=== PATIENT | male | born 1990 | race Caucasian/White ===

== ENCOUNTER 2021-12-29 17:00 | Outpatient (REF) | payer SELFPAY ==
[2021-12-29 20:09] LABS: Abs Immature Grans 0.04 10^3/uL (0.0-0.06); Absolute Basophil Count 0.08 10^3/uL (0.0-0.2); Absolute Eosinophil Count 0.24 10^3/uL (0.0-0.7); Absolute Lymphocyte Count 4.22 10^3/uL (1.2-3.4); Absolute Neutrophil Count 3.94 10^3/uL (1.2-6.7); Basophils % 0.9; Eosinophils % 2.6; HCT 45.1 % (40.0-50.0); HGB 15.2 g/dL (13.5-17.5); Immature Grans % 0.4; Lymphocytes % 45.8; MCH 29.7 pg (27.0-33.0); MCHC 33.7 % (32.0-36.0); MCV 88 fL (80-95); MPV 11.8 fL (8.0-11.0); Monocytes % 7.6; Neutrophils % 42.7; Platelet Count 156 10^3/uL (130-400); RBC 5.11 10^6/uL (4.36-5.78); RDW 12.2 % (11.8-14.1); RDW-SD 39.8 fL; WBC 9.22 10^3/uL (4.4-10.8)
[2021-12-29 21:03] LABS: ALT 221 U/L (16-63); AST 130 U/L (15-37); Albumin 4.3 g/dL (3.4-5.0); Alkaline Phosphatase 111 U/L (46-116); BUN 14 mg/dL (7-18); Bilirubin, Total 0.5 mg/dL (0.2-1.0); CREATININE 0.8 mg/dL (0.70-1.30); Calcium 9.2 mg/dL (8.5-10.1); Chloride 102 mmol/L (98-107); Potassium 4.2 mmol/L (3.5-5.1); Sodium 138 mmol/L (136-145)
[2021-12-29 21:11] LABS: Glucose 88 mg/dL (74-106)
[2021-12-31 12:50] LABS: HIV-1/2 Ag & Ab Screen Negative (Negative)
[2022-01-02 11:52] LABS: HBs Antibody, Quant >1000.0 mIU/mL (See Note); Hepatitis B Surface Ab Positive (See Note)
[2022-01-02 11:53] LABS: Hepatitis B Surface Ag Negative (Negative)
[2022-01-02 12:21] LABS: Hepatitis C Ab w Rflx HCV PCR Reactive (Negative)
[2022-01-02 12:39] LABS: Hep A Total Ab w Rflx IgM Negative (Negative)
[2022-01-02 23:04] LABS: HCV Genotype 3 (Undetected)
[2022-01-04 08:39] LABS: ALT 196 U/L (7-55); ActiTest Grade A3; ActiTest Interpretation severe activity; ActiTest Score 0.79; Alpha-2-Macroglobulin 224 mg/dL (100 - 280); Apoliprotein A1 158 mg/dL (>=120); Bilirubin, Total 0.4 mg/dL (<=1.2); FibroTest Interpretation no fibrosis; FibroTest Score 0.24; FibroTest Stage F0-F1; GGT 133 U/L (8 - 61); Haptoglobin 132 mg/dL (30 - 200)
[2022-01-04 14:34] LABS: HCV RNA Detection Quantitative 313000 IU/mL (Undetected); HCV RNA Qualitative Detected (Undetected)
== END 2021-12-29 17:01 | disposition home or self-care (01) ==
LOC: NCHCN 17:00
PROVIDERS: Visit Provider Nurse Practitioner Family
DX: B19.20 Unspecified viral hepatitis C without hepatic coma (principal)
CPT/HCPCS: 80053; 81596; 86706; 86709; 86803; 87340; 87389; 87522; 85025; 85610; 87521

== ENCOUNTER 2022-01-18 20:14 | Emergency (ER) | payer MEDICAID, SELFPAY ==
[2022-01-18 20:21] VITALS: BP 128/76; PULSE 74; RESP 16; TEMP 36.6; O2SAT 99
[2022-01-18 23:21] VITALS: RESP 16
== END 2022-01-18 21:50 ==
LOC: ER 20:36
PROVIDERS: Emergency Provider Physician Assistant; PCP Nurse Practitioner Family
DX: Z53.21 Procedure and treatment not carried out due to patient leaving prior to being seen by health care provider (principal)

== ENCOUNTER → 2022-01-31 01:05 | Outpatient (CLI) | payer MEDICAID, SELFPAY ==
--- NOTE | 2022-01-31 | DI.US_ITS ---
Exam(s) US ABDOMEN LIMITED EXAM: US ABDOMEN LIMITED CLINICAL HISTORY: HEP C, B19.20, PRE TREATMENT TECHNIQUE: Ultrasound abdomen performed using standard protocol. COMPARISON: No exams were available for comparison FINDINGS: There is no ascites evident. LIVER: There are no hepatic lesions evident nor dilatation of intrahepatic ducts. GALLBLADDER/BILIARY: There are no gallstones. No gallbladder wall edema nor pericholecystic fluid. The common hepatic duct isnot dilated, measuring 3-4mm at the level of mira hepatis. PANCREAS: There is no evidence of pancreatic mass nor dilatation of the pancreatic duct. RIGHT KIDNEY:No evidence of solid mass, calculus, nor hydronephrosis. No cortical cysts evident. IMPRESSION: 1. No evidence of cholelithiasis nor dilatation of the biliary tree. 2. No other significant ultrasound findings in the right upper quadrant. 3. There is no ascites. DATA REPOSITORY:
== END ==
PROVIDERS: PCP Nurse Practitioner Family; Visit Provider Nurse Practitioner Family
DX: B19.20 Unspecified viral hepatitis C without hepatic coma (principal)
CPT/HCPCS: 76705

== ENCOUNTER 2022-08-29 11:46 | Emergency (ER) | payer MEDICAID, SELFPAY ==
[2022-08-29 11:49] VITALS: BP 140/77; PULSE 96; RESP 16; TEMP 36.8; O2SAT 100
--- NOTE | 2022-08-29 12:07 | ED.GENADUL_ITS ---
Discharge Plan Disposition Patient Disposition: Home Discharge Details Clinical Impression: Facial cellulitis Primary Care Provider: KEVIN HUBER ED Provider: Jim Sorto Home Meds and New Rx's Prescriptions: New sulfamethoxazole-trimethoprim [Bactrim DS] 800-160 mg tablet 1 tab PO BID 10 Days Qty: 20 0RF Continued mirtazapine 15 mg Tablet 15 mg PO DAILY Vyvanse 30 mg Capsule 30 mg PO DAILY buprenorphine-naloxone [Suboxone] 12-3 mg Film DAILY Discharge Instructions Instructions: Cellulitis (ED) Additional Instructions: We will review rest today. Warm compresses to the area to reduce swelling; this will help with healing. Take antibiotics twice daily as prescribed. No alcohol while on the antibiotic. You were seen by our care managers today. Return for any acute concerns Medical Decision Making 31-year-old male presents with subjective fever and chills over 2 to 3 days. He has evidence of left facial cellulitis. He has had recidivism of IV drug use. He does state that he had a staph infection distantly and a question of endocarditis. Today the patient is afebrile and well-appearing. His exam is consistent with left facial cellulitis. I will treat him with a course of Bactrim. He was seen by the hospital social sciences instructor regarding referrals for treatment for opiate dependence. He is stable and appropriate for discharge. HPI General Mode of arrival: ambulatory . Date/Time Provider Initiated Documentation: 08/29/22 11:50 . Limitations to Documentation: no limitations . Information obtained by: patient . History of Present Illness 31 year old M presents to the emergency department with the chief complaint of Fever and left face swelling, described as moderate, Quality is described as dull and constant, and is localized to the face. Patient reports no radiation. Patient started experiencing this day(s) and it has been intermittent. No relieving factors improve symptom(s), No exacerbating factors reported . Patient notes fever/chills; denies cough and shortness of breath. Patient did receive the following treatments prior to arrival, none Related Data Home Medications Medication Instructions Recorded Confirmed buprenorphine 12 mg-naloxone 3 mg film DAILY 01/18/22 sublingual film (Suboxone) lisdexamfetamine 30 mg capsule 30 mg PO DAILY 01/18/22 01/18/22 (Vyvanse) mirtazapine 15 mg tablet 15 mg PO DAILY 01/18/22 01/18/22 sulfamethoxazole 800 1 tab PO BID 10 days #20 tabs 08/29/22 mg-trimethoprim 160 mg tablet (Bactrim DS) Previous Rx's Medication Instructions Recorded sulfamethoxazole 800 1 tab PO BID 10 days #20 tabs 08/29/22 mg-trimethoprim 160 mg tablet (Bactrim DS) Allergies Allergy/AdvReac Type Severity Reaction Status Date / Time No Known Allergies Allergy Unverified 01/18/22 20:24 General Stated Complaint: Fever CARLA: 3 Review of Systems Narrative: Using IV drugs. Trying to get into treatment. 6 systems were reviewed [facility] All Active Problems (Updated 08/29/22 @ 12:10 by Jim Sorto MD) Facial cellulitis (Acute) Social History Smoking/Tobacco Use Status: Current every day Tobacco Type: cigarettes Smoking risk assessment performed?: Yes Substance use type: former substance user, heroin, opiates and methamphetamine Exam Narrative Exam Narrative: GEN: awake, alert, oriented 3. Pleasant, well groomed, interactive. HEAD: Normocephalic, atraumatic ENT: Mucous membranes moist, oropharynx unremarkable, left tympanic membranes slightly fluid-filled pearlescent and lynch, right tympanic membrane unremarkable. Patient has swelling of his left cheek with a scabbed area that he has been itching. EYES: PERRL, EOMI NECK: Full ROM, no OPAL, no menigismus CHEST/RESP: Nontender, clear to auscultation bilateral, no wheeze/rhonchi/rales CARDIOVASCULAR: RRR, no murmur, rub sun. 2+ Rad pulse bilateral EXT: Full ROM, no edema, track [place] left AC fossa and right distal forearm Neuro: Grossly normal neurologic exam, conversant, interactive. Psych: Speech fluent, thoughts congruent, affect normal Course Vital Signs Vital signs: Vital Signs Temperature 36.8 C 08/29/22 11:49 Pulse 96 H 08/29/22 11:49 Respiratory Rate 16 08/29/22 11:49 Blood Pressure 140/77 08/29/22 11:49 Pulse Oximetry 100 08/29/22 11:49 Temperature 36.8 C 08/29/22 11:49 Temperature Source Oral 08/29/22 11:49 Pulse 96 H 08/29/22 11:49 Respiratory Rate 16 08/29/22 11:49 Blood Pressure 140/77 08/29/22 11:49 Blood Pressure Position Sitting 08/29/22 11:49 Pulse Oximetry 100 08/29/22 11:49 Oxygen Delivery Method Room Air 08/29/22 11:49 Oxygen Flow Rate 0 08/29/22 11:49 Pain Level 1 08/29/22 11:49
[2022-08-29] MEDS: Sulfameth/Trimeth DS, 2 TABS/BTL 1 TAB PO (12:18)
[2022-08-29 12:22] VITALS: BP 140/77; PULSE 92; RESP 16; TEMP 36.8; O2SAT 100
--- NOTE | 2022-08-29 12:36 | CMACTNOTE_ITS ---
- If Service Date Differs Date of service: 08/29/22 Time of Service: 12:36 Care Management Activity Note Andre presents in the ED for facial cellulitis. At the request of ED provider, GOPAL meets with Andre to offer assistance in getting him connected with [facility]. Andre reports he has been in contact with [facility] but has been unable to get an appointment. With his verbal permission, GOPAL telephones [facility] and speaks with Yessenia who states she has been trying to reach Andre to provide him with an appointment but has been unable to reach him. GOPAL is able to connect Yessenia with Andre and he is provided an appointment for tomorrow morning (08/30/22) at [facility].
--- NOTE | 2022-08-31 07:04 | NUR.NOTE ---
Nursing Note: Patient called stating that he did not turkey picker his prescription yesterday. The cellulitis is worse. Can he get something sooner or wait until the pharmacy opens at 9am and turkey picker the presciption then? Per Dr. Carey he needs to turkey picker the prescription today. If he feels that he needs to be seen, then he is welcome to return to the ED. Patient is aware.
== END 2022-08-29 12:30 | disposition home or self-care (01) ==
PROVIDERS: Emergency Provider Emergency Medicine; PCP Nurse Practitioner Family
DX: L03.211 Cellulitis of face (principal)
CPT/HCPCS: 99283

== ENCOUNTER 2023-01-01 14:24 | Emergency (ER) | payer MEDICAID, SELFPAY ==
[2023-01-01 14:29] VITALS: PULSE 82; RESP 18; TEMP 36.8; O2SAT 97
--- NOTE | 2023-01-01 14:33 | ED.GENADUL_ITS ---
Discharge Plan Discharge Details Chief Complaint: RX Refill Primary Care Provider: KEVIN HUBER ED Provider: Sandrine Avelar Home Meds and New Rx's Prescriptions: No Action mirtazapine 15 mg Tablet 15 mg PO DAILY Patient Comments: pt states not taking Vyvanse 30 mg Capsule 60 mg PO DAILY buprenorphine-naloxone [Suboxone] 12-3 mg Film DAILY Patient Comments: pt states not taking paroxetine HCl 30 mg Tablet 30 mg PO DAILY methadone 10 mg/5 mL Solution 100 mg PO DAILY Medical Decision Making Called [facility] after hours, awaiting call back. HPI General Date/Time Provider Initiated Documentation: 01/01/23 14:33 . Related Data Home Medications Medication Instructions Recorded Confirmed buprenorphine 12 mg-naloxone 3 mg film DAILY 01/18/22 sublingual film (Suboxone) lisdexamfetamine 30 mg capsule 60 mg PO DAILY 01/18/22 01/01/23 (Vyvanse) mirtazapine 15 mg tablet 15 mg PO DAILY 01/18/22 01/18/22 methadone 10 mg/5 mL oral solution 100 mg PO DAILY 01/01/23 01/01/23 paroxetine HCl 30 mg tablet 30 mg PO DAILY 01/01/23 01/01/23 Allergies Allergy/AdvReac Type Severity Reaction Status Date / Time No Known Allergies Allergy Unverified 01/18/22 20:24 General Stated Complaint: RX Refill CARLA: 5 PFSH Social History Smoking/Tobacco Use Status: Current every day Tobacco Type: cigarettes Smoking risk assessment performed?: Yes Drug use: Current Sobriety Substance use type: heroin, opiates, IV drugs and methamphetamine Do you feel safe at home: Yes Do you feel safe in your relationship?: Yes Course Vital Signs Vital signs: Vital Signs Temperature 36.8 C 01/01/23 14:29 Pulse 82 01/01/23 14:29 Respiratory Rate 18 01/01/23 14:29 Pulse Oximetry 97 01/01/23 14:29 Temperature 36.8 C 01/01/23 14:29 Temperature Source Oral 01/01/23 14:29 Pulse 82 01/01/23 14:29 Respiratory Rate 18 01/01/23 14:29 Blood Pressure Position Sitting 01/01/23 14:29 Pulse Oximetry 97 01/01/23 14:29 Oxygen Delivery Method Room Air 01/01/23 14:29 Oxygen Flow Rate 0 01/01/23 14:29
[2023-01-01] MEDS: Methadone Liquid 10 MG/ML 100 MG PO (16:53)
--- NOTE | 2023-01-01 16:54 | W.ED.GENAD ---
Discharge Plan Disposition Patient Disposition: Home Discharge Details Clinical Impression: Opioid dependence on maintenance agonist therapy, no symptoms Primary Care Provider: KEVIN HUBER ED Provider: Richie Del Rio Home Meds and New Rx's Prescriptions: Continued Vyvanse 30 mg Capsule 60 mg PO DAILY paroxetine HCl 30 mg Tablet 30 mg PO DAILY methadone 10 mg/5 mL Solution 100 mg PO DAILY Discontinued mirtazapine 15 mg Tablet 15 mg PO DAILY Patient Comments: pt states not taking buprenorphine-naloxone [Suboxone] 12-3 mg Film DAILY Patient Comments: pt states not taking Discharge Instructions Additional Instructions: We have dosed you today with your methadone given that the circumstances were out of your control. It is very important that you follow-up with the [facility] clinic for further dosing as this is not a standard procedure for the emergency department. Referrals: [facility] [Outside] - 1 day Medical Decision Making Patient presenting to the emergency department for chief complaint of missed methadone dose. Patient states due to circumstances out of his control he missed his daily methadone dose. Patient denies all other symptoms. We did contact [facility] and verified patient's dose of 100 mg daily. Patient is no longer on Suboxone. Patient has no obvious signs of withdrawal or acute distress so we did dose patient with a single dose and encouraged him to return to his normal dosing at the clinic. After discussion of diagnosis and plan of care patient has no further needs, questions, or concerns and states clear understanding to return to the emergency department for any worsening symptoms. This documentation was generated using [employer] dictation system, please disregard any oddities of phrase or misspellings. HPI General Mode of arrival: ambulatory. Date/Time Provider Initiated Documentation: 01/01/23 14:33. Limitations to Documentation: no limitations. Information obtained by: patient and RN notes reviewed. History of Present Illness 32 year old M presents to the emergency department with the chief complaint of Missed methadone dose, Patient notes no other symptoms.. Patient did receive the following treatments prior to arrival, none Related Data Home Medications Medication Instructions Recorded Confirmed lisdexamfetamine 30 mg capsule 60 mg PO DAILY 01/18/22 01/01/23 (Vyvanse) methadone 10 mg/5 mL oral solution 100 mg PO DAILY 01/01/23 01/01/23 paroxetine HCl 30 mg tablet 30 mg PO DAILY 01/01/23 01/01/23 Allergies Allergy/AdvReac Type Severity Reaction Status Date / Time No Known Allergies Allergy Unverified 01/18/22 20:24 General Stated Complaint: RX Refill CARLA: 3 Review of Systems Narrative: 6 systems reviewed and unremarkable except what is marked below. PFSH All Active Problems (Updated 01/01/23 @ 16:57 by Richie Del Rio NP) Opioid dependence on maintenance agonist therapy, no symptoms (Acute) Social History Smoking/Tobacco Use Status: Current every day Tobacco Type: cigarettes Smoking risk assessment performed?: Yes Drug use: Current Sobriety Substance use type: heroin, opiates, IV drugs and methamphetamine Do you feel safe at home: Yes Do you feel safe in your relationship?: Yes Exam Const General: cooperative, no acute distress and not ill appearing Orientation: alert, awake and oriented x3 HENMT Mouth: moist mucous membranes Resp Effort & Inspection: normal respiratory effort, able to speak in complete sentences and no respiratory distress Neuro General: patient alert, patient awake, patient oriented x3 and moves all extremities Course Vital Signs Vital signs: Vital Signs Temperature 36.8 C 01/01/23 14:29 Pulse 82 01/01/23 14:29 Respiratory Rate 18 01/01/23 14:29 Pulse Oximetry 97 01/01/23 14:29 Temperature 36.8 C 01/01/23 14:29 Temperature Source Oral 01/01/23 14:29 Pulse 82 01/01/23 14:29 Respiratory Rate 18 01/01/23 14:29 Respiratory Effort Normal, Non-Labored 01/01/23 14:34 Blood Pressure Position Sitting 01/01/23 14:29 Pulse Oximetry 97 01/01/23 14:29 Oxygen Delivery Method Room Air 01/01/23 14:29 Oxygen Flow Rate 0 01/01/23 14:29
[2023-01-01 17:09] VITALS: BP 128/85; PULSE 71; RESP 16; O2SAT 97
== END 2023-01-01 17:02 | disposition home or self-care (01) ==
PROVIDERS: Emergency Provider Nurse Practitioner Family; PCP Nurse Practitioner Family
DX: F11.20 Opioid dependence, uncomplicated (principal)
CPT/HCPCS: 99283; 99284

== ENCOUNTER 2023-12-05 10:54 | Inpatient (IN) | payer MEDICAID, SELFPAY ==
[2023-12-05 10:57] VITALS: BP 159/86; PULSE 106; RESP 14; TEMP 36.4; O2SAT 98
--- NOTE | 2023-12-05 11:15 | DI.US_ITS ---
Exam(s) US SOFT TISSUE EXTREMITY EXAM: US SOFT TISSUE EXTREMITY CLINICAL HISTORY: DVT vs abscess L arm. TECHNIQUE: Ultrasound was performed using standard protocol. COMPARISON: US US UPPER EXTREMITY VENOUS LT from 12/05/2023 FINDINGS: Sonographic assessment utilizing grayscale and color Doppler imaging was performed and targeted to th e area of clinical concern. The region of significant swelling in the upper arm was scanned There is no evidence of abscess. There is severe edema in the subcutaneous fat. Reactive lymph node s are noted in the axilla. IMPRESSION: Marked soft tissue swelling. No evidence of drainable abscess or fluid collection. DATA REPOSITORY:
--- NOTE | 2023-12-05 11:15 | DI.US_ITS ---
Exam(s) US UPPER EXTREMITY VENOUS LT EXAM: US UPPER EXTREMITY VENOUS LT CLINICAL HISTORY: L unilateral arm swelling. TECHNIQUE: Ultrasound examination of the left upper extremity venous system(s) is performed using gr ayscale, color-flow, and spectral Doppler analysis. COMPARISON: No exams were available for comparison FINDINGS: Evaluation of the veins limited due to extensive swelling of the upper arm. The left internal jugular, axillary, subclavian, basilic, and brachial veins are patent without evide nce of thrombosis. There is compression of the cephalic vein. Thrombus is visible in the cephalic vein in the upper for earm, antecubital fossa region over a length of 2-3 cm. IMPRESSION: Thrombus in the cephalic vein in the antecubital fossa. The more superior cephalic vein is not visua lized, compressed by a marked soft tissue swelling. The remaining vessels are free of thrombus. DATA REPOSITORY:
--- NOTE | 2023-12-05 11:25 | W.ED.GENAD ---
Discharge Plan Discharge Details Chief Complaint: Cellulitis Primary Care Provider: KEVIN HUBER ED Provider: Nahun Albarran Home Meds and New Rx's Prescriptions: New cephalexin 500 mg capsule 500 mg PO QID 14 Days Qty: 56 0RF doxycycline hyclate 100 mg capsule 100 mg PO BID 14 Days Qty: 28 0RF Continued lisdexamfetamine [Vyvanse] 30 mg Capsule 60 mg PO DAILY paroxetine HCl 30 mg Tablet 30 mg PO DAILY methadone 10 mg/5 mL Solution 150 mg PO DAILY Discharge Instructions Instructions: Cephalexin, Doxycycline, Superficial vein phlebitis and thrombosis, Cellulitis (Skin Infection), Adult ED HPI General Date/Time Provider Initiated Documentation: 12/05/23 11:24. HPI Narrative: 32 year-old male presents to ED today by POV/ambulating with a chief complaint of draining abscess, redness, swelling to L arm, R-hand dominant with onset for about 3 days. Patient states he was using IVDU in this area, has been draining purulent material, and having diffuse swelling to L arm more focal to proximal arm. Quality described as painful touch, no radiation to fever, nausea, numbness, skin changes in distal forearm/hand, denies shoulder/neck pain, denies tachycardia, shortness of breath or chest pain. Severity is described as moderate to severe with palpation. Palliating factors include nothing specific attempted. Provoking factors include touch. Patient has not been to PCP in quite some time, may have compliance issues. Patient not anticoagulated. Related Data Home Medications Medication Instructions Recorded Confirmed lisdexamfetamine 30 mg capsule 60 mg PO DAILY 01/18/22 12/05/23 (Vyvanse) methadone 10 mg/5 mL oral solution 150 mg PO DAILY 01/01/23 12/05/23 paroxetine HCl 30 mg tablet 30 mg PO DAILY 01/01/23 12/05/23 cephalexin 500 mg capsule 500 mg PO QID cellulitis 14 days 12/05/23 #56 caps doxycycline hyclate 100 mg capsule 100 mg PO BID 14 days #28 caps 12/05/23 Previous Rx's Medication Instructions Recorded cephalexin 500 mg capsule 500 mg PO QID cellulitis 14 days 12/05/23 #56 caps doxycycline hyclate 100 mg capsule 100 mg PO BID 14 days #28 caps 12/05/23 Allergies Allergy/AdvReac Type Severity Reaction Status Date / Time No Known Allergies Allergy Unverified 12/05/23 11:03 General Stated Complaint: Cellulitis CARLA: 2 Review of Systems All systems reviewed & are unremarkable except as noted in HPI and below Exam Narrative Exam Narrative: GENERAL APPEARANCE: Well-nourished, non-toxic, awake and alert, atraumatic, no acute distress. SKIN: Warm, pink, dry, intact, without rashes/lesions/ulcerations. HEAD: Normocephalic, atraumatic, normal hair distribution for gender/age. EYES: Pupils PERRLA, EOMs intact without nystagmus, normal conjunctiva, no exudates on lids/lashes. ENT: Nares patent, no circumoral cyanosis, no facial swelling NECK: Supple, trachea midline, painless cervical ROM. LUNGS/CHEST: Non-labored respirations, normal A/P diameter, symmetrical expansion, no chest wall deformity HEART (CV/PV): Regular rate, L radial pulse 2+, no peripheral edema, no JVD. ABDOMEN: Soft, non-distended, no guarding. MSK: Normal ROM, no swelling/deformity to bilateral UEs or LEs, moving all extremities without weakness, no cyanosis, spine midline without tenderness, normal curvature. L UE: Diffuse swelling to the left upper extremity without cerulea dolens in the distal left arm, space and missile operations strength 5/5, sensation intact with brisk capillary refill left radial pulse 2+, has a draining abscess lesion of IVDU at the left antecubital fossa with significant erythema and swelling to the distal bicep area, the erythema is nearly circumferential NEURO: Mental Status AAOx4 - alert to person, place, time, events No facial droop, no forehead involvement. Motor: No focal weakness - strength 5/5 in bilateral UEs and LEs, proximal and distal, symmetric. Sensory: sensation intact to light touch globally. Gait normal: patient ambulated without ataxia into ED room. PSYCH: euthymic, cooperative, pleasant, appropriate speech Course Vital Signs Vital signs: Vital Signs Temperature 36.4 C L 12/05/23 10:57 Pulse 106 H 12/05/23 10:57 Respiratory Rate 14 12/05/23 10:57 Blood Pressure 159/86 H 12/05/23 10:57 Pulse Oximetry 98 12/05/23 10:57 Temperature 36.4 C L 12/05/23 10:57 Temperature Source Temporal Artery Scan 12/05/23 10:57 Pulse 106 H 12/05/23 10:57 Respiratory Rate 14 12/05/23 10:57 Respiratory Effort Normal, Non-Labored 12/05/23 11:00 Blood Pressure 159/86 H 12/05/23 10:57 Blood Pressure Position Sitting 12/05/23 10:57 Pulse Oximetry 98 12/05/23 10:57 Oxygen Delivery Method Room Air 12/05/23 10:57 Oxygen Flow Rate 0 12/05/23 10:57 Pain Level 4 12/05/23 10:57 Medical Decision Making This dictation utilizes [id number] dictation software and may contain unedited grammatical errors. 32 year-old male presents to ED today by POV/ambulating with a chief complaint of draining abscess, redness, swelling to L arm, R-hand dominant with onset for about 3 days. Patient states he was using IVDU in this area, has been draining purulent material, and having diffuse swelling to L arm more focal to proximal arm. Quality described as painful touch, no radiation to fever, nausea, numbness, skin changes in distal forearm/hand, denies shoulder/neck pain, denies tachycardia, shortness of breath or chest pain. Severity is described as moderate to severe with palpation. Palliating factors include nothing specific attempted. Provoking factors include touch. Patient has not been to PCP in quite some time, may have compliance issues. Patients' medical history: Noncontributory, denies any coagulation disorder known. Family and social history: IVDU-active user. Pertinent exam findings / vital signs include L UE: Diffuse swelling to the left upper extremity without cerulea dolens in the distal left arm, space and missile operations strength 5/5, sensation intact with brisk capillary refill left radial pulse 2+, has a draining abscess lesion of IVDU at the left antecubital fossa with significant erythema and swelling to the distal bicep area, the erythema is nearly circumferential. Differential / pathologies of concern include DVT, SVT of L UE, Cellulitis, Abscess, Sepsis. Diagnostic studies of: -CBC, CMP, Lactate, Procalcitonin, Blood Cx's, CRP, PT/PTT/INR, US L UE Soft Tissue, US L UE DVT Study. -CBC shows leukocytosis of 12.9 -Lactate and procalcitonin negative-do not suspect sepsis -CMP is benign -CRP is 15.5 -Coags are fairly benign with a mild elevation of PT, INR 1.1 -Blood cultures pending -US L UE soft tissue shows no abscess shows signs of cellulitis -US L UE DVT study shows thrombus within the cephalic vein proximal, concern for superficial thrombosis near to the deep vein system Interventions of: -2gm IV cefazolin, 2gm IV Vancomycin, [place] [facility] [place] [place] is DOAC appropriate for this clot vs SVT tx- patient has high risk and compliance issues for Coumadin and subQ injections. -Consult ABX of Keflex and Doxycycline PO, sent to patients' pharmacy ED Course/Assessment/Plan: 32-year-old male presents with significant lesion from IVDU in the left antecubital fossa, he has near circumferential cellulitis of this area with some draining scant abscess of no palpable size, he has diffuse swelling throughout the proximal arm and concern for possible DVT pathology, his ultrasound shows cephalic vein thrombus of 1 to 2 cm, this is near to the deep vein system but is a superficial clot at this time ordered baseline coagulation studies. In literature search I found that DOACs may not be recommended as of yet due to lack of sufficient studies but the patient has significant compliance issues with his inability to follow closely with PCP for Coumadin use and has intravenous drug use issues I do not think supplying the patient with copious amounts of needles and having him inject subcu anticoagulants at home is an ideal treatment solution so I consulted with [facility] vascular surgery Dr. Rodrigues. Findings not consistent with cerulea dolens, NV compromise, large abscess, sepsis. Disposition of Cephalic Vein Thrombus of Left Upper Extremity. Patient verbalized understanding of the plan and return to ED criteria and engaged in shared decision making. Medical Records Medical records reviewed: Yes I reviewed the patient's medical records. Imaging Data Radiologic Study: Attestation: I personally reviewed and interpreted this imaging study as follows: Imaging: Ultrasound Radiologist's impression: EXAM: US UPPER EXTREMITY VENOUS LT CLINICAL HISTORY: L unilateral arm swelling. TECHNIQUE: Ultrasound examination of the left upper extremity venous system(s) is performed using grayscale, color-flow, and spectral Doppler analysis. COMPARISON: No exams were available for comparison FINDINGS: Evaluation of the veins limited due to extensive swelling of the upper arm. The left internal jugular, axillary, subclavian, basilic, and brachial veins are patent without evidence of thrombosis. There is compression of the cephalic vein. Thrombus is visible in the cephalic vein in the upper forearm, antecubital fossa region over a length of 2-3 cm. IMPRESSION: Thrombus in the cephalic vein in the antecubital fossa. The more superior cephalic vein is not visualized, compressed by a marked soft tissue swelling. The remaining vessels are free of thrombus. Radiologic Study #2: Attestation: I personally reviewed and interpreted this imaging study as follows: Imaging: Ultrasound Radiologist's impression: EXAM: US SOFT TISSUE EXTREMITY CLINICAL HISTORY: DVT vs abscess L arm. TECHNIQUE: Ultrasound was performed using standard protocol. COMPARISON: US US UPPER EXTREMITY VENOUS LT from 12/05/2023 FINDINGS: Sonographic assessment utilizing grayscale and color Doppler imaging was performed and targeted to the area of clinical concern. The region of significant swelling in the upper arm was scanned There is no evidence of abscess. There is severe edema in the subcutaneous fat. Reactive lymph nodes are noted in the axilla. IMPRESSION: Marked soft tissue swelling. No evidence of drainable abscess or fluid collection. Lab Data Lab results reviewed: Yes I reviewed the patient's lab results. Labs: 12/05/23 13:36 Blood Blood Culture - Pending 12/05/23 11:55 Blood Blood Culture - Pending Laboratory Tests Range/Units 12/05/23 12/05/23 11:55 13:36 WBC (4.4-10.8) 10^3/uL 12.97 H RBC (4.36-5.78) 10^6/uL 4.80 Hgb (13.5-17.5) g/dL 13.7 Hct (40.0-50.0) % 41.7 MCV (80-95) fL 87 MCH (27.0-33.0) pg 28.5 MCHC (32.0-36.0) % 32.9 RDW (11.8-14.1) % 12.0 Plt Count (130-400) 10^3/uL 349 MPV (8.0-11.0) fL 10.4 Immature Gran % % 0.5 Neutrophils % % 76.4 Lymphocytes % % 15.0 Monocytes % % 6.9 Eosinophils % % 0.8 Basophils % % 0.4 Nucleated RBC % (0.0-0.3) % 0.0 Absolute Neutrophils (1.2-6.7) 10^3/uL 9.91 H Absolute Lymphocytes (1.2-3.4) 10^3/uL 1.95 Absolute Monocytes (0.1-0.8) 10^3/uL 0.89 H Absolute Eosinophils (0.0-0.7) 10^3/uL 0.10 Absolute Basophils (0.0-0.2) 10^3/uL 0.05 PT (9.1-11.1) sec 11.2 H INR (0.9-1.1) 1.1 APTT (23.6-32.8) sec 27.5 VBG Lactate (0.6-1.4) mmol/L 1.2 Sodium (136-145) mmol/L 142 Potassium (3.5-5.1) mmol/L 3.6 Chloride (98-107) mmol/L 103 Carbon Dioxide (21.0-32.0) mmol/L 32.4 H Anion Gap (3-11) mmol/L 6.6 BUN (7-18) mg/dL 10 Creatinine (0.70-1.30) mg/dL 0.7 Est GFR (CKD-EPI 2020) (mL/min/1.73m2) 124.00 Glucose (74-106) mg/dL 114 H Calcium (8.5-10.1) mg/dL 9.3 Total Bilirubin (0.2-1.0) mg/dL 0.5 AST (15-37) U/L 24 ALT (16-63) U/L 41 Alkaline Phosphatase (46-116) U/L 87 C-Reactive Protein (<or=0.5) mg/dL 15.52 H Total Protein (6.4-8.2) g/dL 8.1 Albumin (3.4-5.0) g/dL 3.0 L Procalcitonin ng/mL < 0.1 Quality:SDOH Health Related Social Needs: Health related social needs risk of homeless, material hardship, food insecurity, transpo insecurity [facility] Social History Smoking/Tobacco Use Status: Current every day Tobacco Type: cigarettes Smoking risk assessment performed?: Yes Alcohol Intake: current Alcohol Intake frequency: 0-2 drinks per day Alcohol type: beer Drug use: Current Sobriety Substance use type: heroin, opiates, IV drugs and methamphetamine Housing: homeless Do you feel safe at home: No Do you feel safe in your relationship?: Yes Sign Out Sign Out Data: Sign Out Comment: Patient has likely high risk SVT of L UE from IVDU, with near circumferential cellulitis. Received IV cefazolin and vancomycin. Rx'd PO cephalexin and doxy for cellulitis. P[place] [facility] [place] for DOAC vs NSAID treatment. Last updated by Nahun Albarran PA at 12/05/23 15:31 PAWSS Have you Been Recently Intoxicated or Drunk Within the Last 30 days?: No Have you Ever Experienced Previous Episodes of Alcohol Withdrawal?: No Have you ever Experienced Withdrawal Seizures?: No Have you ever Experienced Delirium Tremens(DT)s?: No Have you ever undergone Alcohol Rehabilitation Treatment (i.e, inpt ot outpatient treatment programs)?: No Have you ever Experienced Blackouts?: No Have you ever Combined Alcohol with other Downers within the last 90 days?: No Have you ever Combined Alcohol with any other Substance of Abuse during the last 90 days?: No Positive Blood Alcohol level on Presentation? [PCS.BAL]: No Evidence of Increased Autonomic Activity (i.e. HR>120, tremor, sweating, agitation, nausea)?: No Result: 0
[2023-12-05 12:10] LABS: Lactate 1.2 mmol/L (0.6-1.4)
[2023-12-05 12:11] LABS: Abs Immature Grans 0.07 10^3/uL (0.0-0.06); Absolute Basophil Count 0.05 10^3/uL (0.0-0.2); Absolute Lymphocyte Count 1.95 10^3/uL (1.2-3.4); Basophils % 0.4 %; Eosinophils % 0.8 %; HCT 41.7 % (40.0-50.0); HGB 13.7 g/dL (13.5-17.5); Immature Grans % 0.5 %; MCH 28.5 pg (27.0-33.0); MCHC 32.9 % (32.0-36.0); MCV 87 fL (80-95); MPV 10.4 fL (8.0-11.0); Monocytes % 6.9 %; Neutrophils % 76.4 %; Platelet Count 349 10^3/uL (130-400); RDW-SD 38.8 fL; WBC 12.97 10^3/uL (4.4-10.8)
[2023-12-05 12:17] LABS: Absolute Monocyte Count 0.89 10^3/uL (0.1-0.8); Absolute Neutrophil Count 9.91 10^3/uL (1.2-6.7)
[2023-12-05 12:40] LABS: ALT 41 U/L (16-63); AST 24 U/L (15-37); Alkaline Phosphatase 87 U/L (46-116); Anion Gap 6.6 mmol/L (3-11); BUN 10 mg/dL (7-18); Bilirubin, Total 0.5 mg/dL (0.2-1.0); C-Reactive Protein 15.52 mg/dL (<or=0.5); CO2 32.4 mmol/L (21.0-32.0); CREATININE 0.7 mg/dL (0.70-1.30); Calcium 9.3 mg/dL (8.5-10.1); Chloride 103 mmol/L (98-107); Glucose 114 mg/dL (74-106); Potassium 3.6 mmol/L (3.5-5.1); Sodium 142 mmol/L (136-145); Total Protein 8.1 g/dL (6.4-8.2)
[2023-12-05 12:54] LABS: Procalcitonin < 0.1 ng/mL
[2023-12-05] MEDS: ceFAZolin 2 GM/50 ML BAG IVPB (13:30)
--- OUTSIDE RECORDS SUMMARY | 2023-12-05 13:34 | XMS_ITS | Continuity of Care Document ---
Author Name [facility] Address [address] [place] [id number] Organization [facility] Address [address] [place] [id number] Care Team Providers Care Assistant Manager Name Role Phone PCP, of Choice Primary Care Physician Brent Vazquez Admitting Physician [phone] Brent Brantley Attending Physician Allergies, Adverse Reactions, Alerts Allergen Type Severity Reaction Last Updated Verified Status penicillin V Allergy Mild rash July 04, 2021 Y Ac tive Medications Active Medications Medication Dose Units Route Sig Start Date Status Mirtazapine 15 MG ORAL DAILY July 03, 2021 Act bailee Buprenorphine-Naloxone [Suboxone] 1 film SUBLINGUAL CHELE LY July 03, 2021 Active Problem List Active Problems Medical Problem Onset Date Status Metabolic encephalopathy Active Acute confusion Active Procedures Procedure Date Status CT Head w/o Contrast July 04, 2021 completed EKG July 03, 2021 completed Relevant Diagnostic Tests and/or Laboratory Data Laboratory Results Test Date/Time Result Interp. Ref. Range Result Co mment White Blood Count July 03, 2021 9:19pm 15.30 1000/mm3 High 4.8-10.8 Red Blood Count July 03, 2021 9:19pm 5.60 M/mm3 4.70-6.00 Hemoglobin July 03, 2021 9:19pm 16.3 g/dL 14.0-18.0 Hematocrit July 03, 2021 9:19pm 48.8 % 42-52 Mean Corpuscular Volume July 03, 2021 9:19pm 87.1 fL 80.0-94.0 Mean Corpuscular Hemoglobin July 03, 2021 9:19pm 29.1 pg 27-31 Mean Corpuscular Hemoglobin Concent July 03, 2021 9:19pm 33.4 g/dL 33-37 Red Cell Distribution Width July 03, 2021 9:19pm 12.3 % 11.5-14.5 Platelet Count July 03, 2021 9:19pm 265 1000/mm3 140-440 Mean Platelet Volume July 03, 2021 9:19pm 9.9 fL 7.4-10.4 Neutrophils (%) (Auto) July 03, 2021 9:19pm 74.9 % High 40.0-72.0 Lymphocytes (%) (Auto) July 03, 2021 9:19pm 17.4 % 17-45 Monocytes (%) (Auto) July 03, 2021 9:19pm 6.3 % 3-11 Eosinophils (%) (Auto) July 03, 2021 9:19pm 0.3 % 0-3 Basophils (%) (Auto) July 03, 2021 9:19pm 0.5 % 0-1 Immature Granulocyte % (Auto) July 03, 2021 9:19pm 0.6 % 0-1 Nucleated Red Blood Cells % (auto) February 23, 2021 12:15pm TNP Test not perform ed CBCD CANCELLED, LAB UNABLE TO DRAW PATIENT Neutrophils # (Auto) July 03, 2021 9:19pm 11.48 1000/mm3 High 1.4-6.5 Lymphocytes # (Auto) July 03, 2021 9:19pm 2.66 1000/mm3 1.2-3.4 Monocytes # (Auto) July 03, 2021 9:19pm 0.96 1000/mm3 High 0.0-0.8 Eosinophils # (Auto) July 03, 2021 9:19pm 0.04 1000/mm3 0.0-0.7 Basophils # (Auto) July 03, 2021 9:19pm 0.07 1000/mm3 0.0-0.1 Absolute Immature Granulocyte (auto July 03, 2021 9:19pm 0.1 0-1 Nucleated RBC Absolute Count (auto) February 23, 2021 12:15pm TNP Test not perform ed CBCD CANCELLED, LAB UNABLE TO DRAW PATIENT Differential Method July 03, 2021 9:19pm Automated Sodium Level July 04, 2021 6:52am 139 mmol/L 137-145 Potassium Level July 04, 2021 6:52am 4.4 mmol/L 3.6-5.0 Chloride Level July 04, 2021 6:52am 103 mmol/L 98-107 Carbon Dioxide Level July 04, 2021 6:52am 28 mmol/L 22-30 Anion Gap July 04, 2021 6:52am 8 7-16 Blood Urea Nitrogen July 04, 2021 6:52am 13 mg/dL 8-26 Creatinine July 04, 2021 6:52am 0.67 mg/dL 0.66-1.25 Glomerular Filtration Rate Calc July 04, 2021 6:52am > 60 mL/min 60.0- Glucose Level July 04, 2021 6:52am 101 mg/dL High 70-100 Calcium Level July 04, 2021 6:52am 9.5 mg/dL 8.4-10.2 Calcium Adjusted for Albumin July 04, 2021 6:52am 9.5 mg/dL 8.4-10.2 Total Bilirubin July 04, 2021 6:52am 1.2 mg/dL 0.2-1.3 Gamma Glutamyl Transpeptidase February 23, 2021 12:15pm TNP Test not perform ed UNABLE TO OBTAIN Aspartate Amino Transf (AST/SGOT) July 04, 2021 6:52am 63 U/L High 17-59 Alanine Aminotransferase (ALT/SGPT) July 04, 2021 6:52am 67 U/L High As of 10/17/19, th e Reference Range for ALT/SGPT for adult patients has been updated. The Reference Range for ALT/SGPT has not been established for patients <18 years of age. Troponin I July 03, 2021 9:19pm < 0.012 ng/mL 0-0.034 Reference Range: <0.034 ng/mL AMI Cut-off 0.120 ng/mL The results of this assay can be falsely decreased in patients who consume Biotin. Total Protein July 04, 2021 6:52am 7.3 g/dL 6.3-8.2 Albumin July 04, 2021 6:52am 4.3 g/dL 3.5-5.0 Alkaline Phosphatase July 04, 2021 6:52am 77 U/L 38-126 SARS-CoV-2 RNA (RT-PCR) July 04, 2021 6:02am Negative Note: This RT-PC R assay is intended for the in vitro qualitative detection of nucleic acid from SARS-CoV-2. This test has not been FDA cleared or approved. This test has been authorized by the FDA under an Emergency Use Authorization (EUA) for use by authorized laboratories. Fact sheets for providers can be found at: fda.gov/media/1363 13/download Fact sheets for patients can be found at: fda.gov/media/0773 12/download New reagent in use as of 05/05/2021. Hepatitis A IgM Antibody February 23, 2021 12:15pm TNP Test not perform ed UNABLE TO OBTAIN Hepatitis B Surface Antigen February 23, 2021 12:15pm TNP Test not perform ed UNABLE TO OBTAIN Hepatitis B Surface Antibody February 23, 2021 12:15pm TNP Test not perform ed UNABLE TO OBTAIN Hepatitis B Surface Antibody, Quant February 23, 2021 12:15pm TNP Test not perform ed UNABLE TO OBTAIN Hepatitis B Core Total Antibody February 23, 2021 12:15pm TNP Test not perform ed UNABLE TO OBTAIN Hepatitis C IgG Antibody February 23, 2021 12:15pm TNP Test not perform ed UNABLE TO OBTAIN Hepatitis C Antibody Comment February 23, 2021 12:15pm TNP Test not perform ed UNABLE TO OBTAIN HCV RNA Qnt (PCR) w/Genotype Reflex February 23, 2021 12:15pm TNP Test not perform ed UNABLE TO OBTAIN Hepatitis A IgG Antibody February 23, 2021 12:15pm TNP Test not perform ed UNABLE TO OBTAIN Urine Methadone Screen July 04, 2021 5:56am Negative ng/mL Advance Directives Advance Directive Response Recorded Date/ Time Do we have a copy on file here at [facility]? No February 23, 2021 12:06pm Does patient have an Advanced Directive? No February 23, 2021 12:06pm Pt has a Living Will? No February 23, 2021 12:06pm Pt has a Power of [employer] [place]? No Sept ember 2020 12:06pm Chief Complaint and Reason for Visit Encounter Admit Date Chief Complaint Reason for V isit Admitted Inpatient July 04, 2021 10:46am POSSIBLE OVERDOSE Acute confusion Metabolic encephalopathy Hospital Discharge Instructions No known hospital discharge instructions. Hospital Discharge Medications Medication Dose Units Route Sig Qty Days Order Date Status Ins tructions Mirtazapine 15 MG ORAL DAILY Chinedu [id number] Active Buprenorphine-Na loxone 1 film SUBLINGUAL DAILY June 182021 Active Encounters Encounter Facility Location Admit/Visit Date Discharge/Departure Date Attending Provider Admitted Inpatient [facility] Progressive Care Unit July 04, 2021 10:46am Brent Brantley Departed Clinical [facility] February 23, 2021 12:06pm February 23, 2021 12:07pm Richard Hammond Encounter Diagnosis Onset Date Acute confusion Metabolic encephalopathy Functional Status Query Response Date Recorded Comment Comprehension Ability Understands Concepts July 03, 2021 8:18pm Mood/Behavior Withdrawn July 03, 2021 8:18pm Speech Appropriate July 04, 2021 8:10am Query Response Date Recorded Comment Living Situation Home With Family July 04, 2021 7:03am Immunizations Immunization Name Date Given Type Covid-19 100mcg/0.5mL Moderna October 19, 2020 Hi storical Covid-19 100mcg/0.5mL Moderna January 26, 2021 Hi storical Plan of Care No Known Plan of Care Information Social History Query Response Date Recorded Comment Alcohol Use Yes July 04, 2021 7:03am Smoking Status Current every day smoker July 04 7:03am Substance Use Treatment Yes July 03, 2021 9:18pm Substance/Street Drug Use Yes July 04 7:03am alcohol intake frequency 3 or more drinks per day 2021 7:03am substance use type marijuana heroin July 03, 2021 9:18pm Query Response Start Date Stop Date Smoking Status Current every day smoker Vital Signs Vital Reading Result Reference Range Collection Date/Time Weight 93.712 kg July 03 2 8:13pm Temperature 97.4 F 97.6 F-99.6 F July 03 8:13pm Pulse 106 BPM 60-100 July 04 2 8:09am Respiration 16 RPM 12-24 July 04 2 8:09am Pulse Oximetry 98 % 95-100 July 04 022 8:09am Blood Pressure Systolic 163 100-140 2021 8:09am Blood Pressure Diastolic 98 50-85 [place] 2021 8:09am
--- OUTSIDE RECORDS SUMMARY | 2023-12-05 13:34 | XMS_ITS | Continuity of Care Document ---
Author Name [facility] Address [address] [place] [id number] Organization [facility] Address [address] [place] [address] Care Team Providers Care Barrel Polisher Inside Name Role Phone PCP, of Choice Primary Care Physician Brent Vazquez Admitting Physician [phone] Brent Brantley Attending Physician [phone] Allergies, Adverse Reactions, Alerts Allergen Type Severity Reaction Last Updated Verified Status penicillin V Allergy Mild rash July 04, 2021 Y Ac tive Medications Active Medications Medication Dose Units Route Sig Start Date Status Mirtazapine 15 MG ORAL BEDTIME July 03, 2021 Act bailee Buprenorphine-Naloxone [Suboxone] 1 film SUBLINGUAL DAILY July 03, 2021 Active Problem List Active Problems Medical Problem Onset Date Status Metabolic encephalopathy Active Acute confusion Active Procedures Procedure Date Status MRI Brain w/wo Contrast July 05, [address] Head w/o Contrast July 04, 2021 completed EKG July 04, 2021 active EKG July 03, 2021 completed Relevant Diagnostic Tests and/or Laboratory Data Laboratory Results Test Date/Time Result Interp. Ref. Range Result Co mment White Blood Count July 04, 2021 11:50am TNP Test not perform ed CBC TESTING CANCELLED, SPECIMEN IS CLOTTED. Red Blood Count July 04, 2021 11:50am TNP Test not perform ed CBC TESTING CANCELLED, SPECIMEN IS CLOTTED. Hemoglobin July 04, 2021 11:50am TNP Test not perform ed CBC TESTING CANCELLED, SPECIMEN IS CLOTTED. Hematocrit July 04, 2021 11:50am TNP Test not perform ed CBC TESTING CANCELLED, SPECIMEN IS CLOTTED. Mean Corpuscular Volume July 04, 2021 11:50am TNP Test not perform ed CBC TESTING CANCELLED, SPECIMEN IS CLOTTED. Mean Corpuscular Hemoglobin July 04, 2021 11:50am TNP Test not perform ed CBC TESTING CANCELLED, SPECIMEN IS CLOTTED. Mean Corpuscular Hemoglobin Concent July 04, 2021 11:50am TNP Test not perform ed CBC TESTING CANCELLED, SPECIMEN IS CLOTTED. Red Cell Distribution Width July 04, 2021 11:50am TNP Test not perform ed CBC TESTING CANCELLED, SPECIMEN IS CLOTTED. Platelet Count July 04, 2021 11:50am TNP Test not perform ed CBC TESTING CANCELLED, SPECIMEN IS CLOTTED. Mean Platelet Volume July 04, 2021 11:50am TNP Test not perform ed CBC TESTING CANCELLED, SPECIMEN IS CLOTTED. Neutrophils (%) (Auto) July 03, 2021 9:19pm [...] Differential Method July 03, 2021 9:19pm Automated Erythrocyte Sedimentation Rate July 05, 2021 11:48am 5 mm/hr 0-20 Sodium Level July 05, 2021 11:48am 139 mmol/L 137-145 Potassium Level July 05, 2021 11:48am 4.2 mmol/L 3.6-5.0 Chloride Level July 05, 2021 11:48am 104 mmol/L 98-107 Carbon Dioxide Level July 05, 2021 11:48am 27 mmol/L 22-30 Anion Gap July 05, 2021 11:48am 8 7-16 Blood Urea Nitrogen July 05, 2021 11:48am 9 mg/dL 8-26 Creatinine July 05, 2021 11:48am 0.61 mg/dL Low 0.66-1.25 Glomerular Filtration Rate Calc July 05, 2021 11:48am > 60 mL/min 60.0- Glucose Level July 05, 2021 11:48am 127 mg/dL High 70-100 Calcium Level July 05, 2021 11:48am 9.1 mg/dL 8.4-10.2 Calcium Adjusted for Albumin July 04, 2021 6:52am 9.5 mg/dL 8.4-10.2 Magnesium Level July 04, 2021 11:50am 2.1 mg/dL 1.6-2.3 Total Bilirubin July 04, 2021 6:52am 1.2 [...] July 04, 2021 6:52am 77 U/L 38-126 C-Reactive Protein July 05, 2021 11:48am < 5.0 mg/L Low 5-10 SARS-CoV-2 RNA (RT-PCR) July 04, 2021 6:02am [...] sheets for patients can be found at: fda.gov/media/1363 12/download New reagent in use as of [...] have a copy on file here at [facility]? No February 23, 2021 12:06pm Does patient have an Advanced Directive? No February 23, 2021 12:06pm Pt has a Living Will? No February 23, 2021 12:06pm Pt has a Power of Build Engineer? No Sept emb2020 12:06pm Chief Complaint and Reason for Visit Encounter Admit Date Chief Complaint Reason for V isit Admitted Inpatient July 04, 2021 10:46am POSSIBLE OVERDOSE Acute confusion Metabolic encephalopathy Hospital Discharge Instructions No known hospital discharge instructions. Hospital Discharge Medications Medication Dose Units Route Sig Qty Days Order Date Status Ins tructions Mirtazapine 15 MG ORAL BEDTIME 2021 Active Buprenorphine-N aloxone 1 film SUBLINGUAL DAILY June 182021 Active Encounters Encounter Facility Location Admit/Visit Date Discharge/Departure Date Attending Provider Admitted Inpatient [facility] Progressive Care Unit July 04, 2021 10:46am Brent Brantley Departed Clinical [facility] Laboratory February 23, 2021 12:06pm February 23, 2021 12:07pm Richard Hammond Encounter Diagnosis Onset Date Acute confusion Metabolic encephalopathy Functional Status Query Response Date Recorded Comment Comprehension Ability Unable to Comprehend July 05, 2021 7:58pm Mood/Behavior Appropriate Anxious July 05, 2021 8:00am Speech Appropriate Clear July 05, 2021 8:00am Query Response Date Recorded Comment Ambulation Ability Independent July 04, 2021 11:47 am Living Situation Home With Family July 04, 2021 11:47am Immunizations Immunization Name Date Given Type Covid-19 100mcg/0.5mL Moderna October 19, 2020 Hi storical Covid-19 100mcg/0.5mL Moderna January 26, 2021 Hi storical Plan of Care No Known Plan of Care Information Social History Query Response Date Recorded Comment Alcohol Use Yes July 04, 2021 11:47am Smoking Status Current every day smoker July 04 11:47am Substance Use Treatment Yes July 03, 2021 9:18pm Substance/Street Drug Use Yes July 04 11:47am alcohol intake frequency 3 or more drinks per day 2021 11:47am substance use type marijuana heroin July 03, 2021 9:18pm Query Response Start Date Stop Date Smoking Status Current every day smoker Vital Signs Vital Reading Result Reference Range Collection Date/Time Height 6 ft 4 in July 04 2 10:30am Weight 93 kg July 04 10:30am Temperature 97.5 F 97.6 F-99.6 F July 05 9:34pm Pulse 72 BPM 60-100 July 05 9:34pm Respiration 18 RPM 12-24 July 05 9:34pm Pulse Oximetry 97 % 95-100 July 05 022 9:34pm Blood Pressure Systolic 114 100-140 [facility] 2021 9:34pm Blood Pressure Diastolic 71 50-85 [facility] 2021 9:34pm Body Mass Index 24.9 July 04, 2021 10:30am
--- OUTSIDE RECORDS SUMMARY | 2023-12-05 13:34 | XMS_ITS | Continuity of Care Document ---
Author Name [facility] Address [address] [place] [address] Organization [facility] Address [address] [place] [address] Care Team Providers Care Paper Bag Inspector Name Role Phone PCP, of Choice Primary Care Physician Richard Kapadia Attending Physician [phone] Allergies, Adverse Reactions, Alerts No allergy information available. Medications No medication information available. Problem List No problem information available. Procedures No known history of procedures. Relevant Diagnostic Tests and/or Laboratory Data Laboratory Results Test Date/Time Result Interp. Ref. Range Result Co mment White Blood Count February 23, 2021 12:15pm TNP Test not performed CBCD CANCELLED, LAB UNABLE TO DRAW PATIENT Red Blood Count February 23, 2021 12:15pm TNP Test not performed CBCD CANCELLED, LAB UNABLE TO DRAW PATIENT Hemoglobin February 23, 2021 12:15pm TNP Test not performed CBCD CANCELLED, LAB UNABLE TO DRAW PATIENT Hematocrit February 23, 2021 12:15pm TNP Test not performed CBCD CANCELLED, LAB UNABLE TO DRAW PATIENT Mean Corpuscular Volume February 23, 2021 12:15pm TNP Test not performed CBCD CANCELLED, LAB UNABLE TO DRAW PATIENT Mean Corpuscular Hemoglobin February 23, 2021 12:15pm TNP Test not performed CBCD CANCELLED, LAB UNABLE TO DRAW PATIENT Mean Corpuscular Hemoglobin Concent February 23, 2021 12:15pm TNP Test not performed CBCD CANCELLED, LAB UNABLE TO DRAW PATIENT Red Cell Distribution Width February 23, 2021 12:15pm TNP Test not performed CBCD CANCELLED, LAB UNABLE TO DRAW PATIENT Platelet Count February 23, 2021 12:15pm TNP Test not performed CBCD CANCELLED, LAB UNABLE TO DRAW PATIENT Mean Platelet Volume February 23, 2021 12:15pm TNP Test not performed CBCD CANCELLED, LAB UNABLE TO DRAW PATIENT Neutrophils (%) (Auto) February 23, 2021 12:15pm TNP Test not performed CBCD CANCELLED, LAB UNABLE TO DRAW PATIENT Lymphocytes (%) (Auto) February 23, 2021 12:15pm TNP Test not performed CBCD CANCELLED, LAB UNABLE TO DRAW PATIENT Monocytes (%) (Auto) February 23, 2021 12:15pm TNP Test not performed CBCD CANCELLED, LAB UNABLE TO DRAW PATIENT Eosinophils (%) (Auto) February 23, 2021 12:15pm TNP Test not performed CBCD CANCELLED, LAB UNABLE TO DRAW PATIENT Basophils (%) (Auto) February 23, 2021 12:15pm TNP Test not performed CBCD CANCELLED, LAB UNABLE TO DRAW PATIENT Immature Granulocyte % (Auto) February 23, 2021 12:15pm TNP Test not performed CBCD CANCELLED, LAB UNABLE TO DRAW PATIENT Nucleated Red Blood Cells % (auto) February 23, 2021 12:15pm TNP Test not performed CBCD CANCELLED, LAB UNABLE TO DRAW PATIENT Neutrophils # (Auto) February 23, 2021 12:15pm TNP Test not performed CBCD CANCELLED, LAB UNABLE TO DRAW PATIENT Lymphocytes # (Auto) February 23, 2021 12:15pm TNP Test not performed CBCD CANCELLED, LAB UNABLE TO DRAW PATIENT Monocytes # (Auto) February 23, 2021 12:15pm TNP Test not performed CBCD CANCELLED, LAB UNABLE TO DRAW PATIENT Eosinophils # (Auto) February 23, 2021 12:15pm TNP Test not performed CBCD CANCELLED, LAB UNABLE TO DRAW PATIENT Basophils # (Auto) February 23, 2021 12:15pm TNP Test not performed CBCD CANCELLED, LAB UNABLE TO DRAW PATIENT Absolute Immature Granulocyte (auto February 23, 2021 12:15pm TNP Test not performed CBCD CANCELLED, LAB UNABLE TO DRAW PATIENT Nucleated RBC Absolute Count (auto) February 23, 2021 12:15pm TNP Test not performed CBCD CANCELLED, LAB UNABLE TO DRAW PATIENT Differential Method February 23, 2021 12:15pm Automated Sodium Level February 23, 2021 12:15pm TNP Test not performed UNABLE TO OBTAIN Potassium Level February 23, 2021 12:15pm TNP Test not performed UNABLE TO OBTAIN Chloride Level February 23, 2021 12:15pm TNP Test not performed UNABLE TO OBTAIN Carbon Dioxide Level February 23, 2021 12:15pm TNP Test not performed UNABLE TO OBTAIN Anion Gap February 23, 2021 12:15pm TNP Test not performed UNABLE TO OBTAIN Blood Urea Nitrogen February 23, 2021 12:15pm TNP Test not performed UNABLE TO OBTAIN Creatinine February 23, 2021 12:15pm TNP Test not performed UNABLE TO OBTAIN Glomerular Filtration Rate Calc February 23, 2021 12:15pm TNP Test not performed UNABLE TO OBTAIN Glucose Level February 23, 2021 12:15pm TNP Test not performed UNABLE TO OBTAIN Calcium Level February 23, 2021 12:15pm TNP Test not performed UNABLE TO OBTAIN Calcium Adjusted for Albumin February 23, 2021 12:15pm TNP Test not performed UNABLE TO OBTAIN Total Bilirubin February 23, 2021 12:15pm TNP Test not performed UNABLE TO OBTAIN Gamma Glutamyl Transpeptidase February 23, 2021 12:15pm TNP Test not performed UNABLE TO OBTAIN Aspartate Amino Transf (AST/SGOT) February 23, 2021 12:15pm TNP Test not performed UNABLE TO OBTAIN Alanine Aminotransferase (ALT/SGPT) February 23, 2021 12:15pm TNP Test not performed UNABLE TO OBTAIN Total Protein February 23, 2021 12:15pm TNP Test not performed UNABLE TO OBTAIN Albumin February 23, 2021 12:15pm TNP Test not performed UNABLE TO OBTAIN Alkaline Phosphatase February 23, 2021 12:15pm TNP Test not performed UNABLE TO OBTAIN Hepatitis A IgM Antibody February 23, 2021 12:15pm TNP Test not performed UNABLE TO OBTAIN Hepatitis B Surface Antigen February 23, 2021 12:15pm TNP Test not performed UNABLE TO OBTAIN Hepatitis B Surface Antibody February 23, 2021 12:15pm TNP Test not performed UNABLE TO OBTAIN Hepatitis B Surface Antibody, Quant February 23, 2021 12:15pm TNP Test not performed UNABLE TO OBTAIN Hepatitis B Core Total Antibody February 23, 2021 12:15pm TNP Test not performed UNABLE TO OBTAIN Hepatitis C IgG Antibody February 23, 2021 12:15pm TNP Test not performed UNABLE TO OBTAIN Hepatitis C Antibody Comment February 23, 2021 12:15pm TNP Test not performed UNABLE TO OBTAIN HCV RNA Qnt (PCR) w/Genotype Reflex February 23, 2021 12:15pm TNP Test not performed UNABLE TO OBTAIN Hepatitis A IgG Antibody February 23, 2021 12:15pm TNP Test not performed UNABLE TO OBTAIN Advance Directives Advance Directive Response Recorded Date/ Time Do we have a copy on file here at [facility]? No February 23, 2021 12:06pm Does patient have an Advanced Directive? No February 23, 2021 12:06pm Pt has a Living Will? No February 23, 2021 12:06pm Pt has a Power of Patient Carrier? No Sept emb2020 12:06pm Chief Complaint and Reason for Visit Encounter Admit Date Chief Complaint Reason for V isit Departed Clinical February 23, 2021 12:06pm Lab Hospital Discharge Instructions No known hospital discharge instructions. Encounters Encounter Facility Location Admit/Visit Date Discharge/Departure Date Attending Provider Departed Clinical [facility] Laboratory February 23, 2021 12:06pm February 23, 2021 12:07pm Richard Hammond Functional Status No known functional status. Immunizations No known immunizations. Plan of Care No Known Plan of Care Information Social History No known social history. Vital Signs No known vital signs results.
--- OUTSIDE RECORDS SUMMARY | 2023-12-05 13:35 | XMS_ITS | Continuity of Care Document ---
Author Name [facility] Address [address] [place] [address] [facility] Address [address] [place] [address] Allergies, Adverse Reactions, Alerts No allergy information available. Medications No medication information available. Problem List No problem information available. Procedures No known history of procedures. Relevant Diagnostic Tests and/or Laboratory Data No known relevant diagnostic tests, laboratory data, and/or discharge summary. Hospital Discharge Instructions No known hospital discharge instructions. Functional Status No known functional status. Immunizations No known immunizations. Plan of Care No Known Plan of Care Information Social History No known social history. Vital Signs No known vital signs results.
--- OUTSIDE RECORDS SUMMARY | 2023-12-05 13:35 | XMS_ITS | Continuity of Care Document ---
Author Name [facility] Address [address] [place] [address] Organization [facility] Address [address] [place] [address] Care Team Providers Care Pastoral Ministries Professor Name Role Phone PCP, of Choice Primary Care Physician Brent Vazquez Admitting Physician Brent Brantley Attending Physician Allergies, Adverse Reactions, [...] sheets for providers can be found at: [employer].gov/media/1363 13/download Fact sheets for patients can be found at: [employer].gov/Oncopeptides/1363 12/download New reagent in use as of [...] have a copy on file here at [facility]? No February 23, 2021 12:06pm Does patient have an Advanced Directive? No February 23, 2021 12:06pm Pt has a Living Will? No February 23, 2021 12:06pm Pt has a Power of Densitometrist? No Sept 2020 12:06pm Chief Complaint and Reason for [...] Date Discharge/Departure Date Attending Provider Admitted Inpatient [facility] Progressive Care Unit July 04, 2021 10:46am Brent Brantley Departed Clinical [facility] Laboratory February 23, 2021 12:06pm February 23, 2021 12:07pm Richard Hammond Encounter Diagnosis Onset Date Acute confusion Metabolic encephalopathy Functional Status Query Response Date Recorded Comment Comprehension Ability Understands Concepts July 04, 2021 11:47am Mood/Behavior Appropriate Anxious July 04, 2021 11:47am Speech Appropriate Clear July 04, 2021 8:00pm Query Response Date Recorded Comment Ambulation Ability [...] Height 6 ft 4 in July 04 10:30am Weight 93 kg July 04 10:30am Temperature 98.1 F 97.6 F-99.6 F July 04 8:35pm Pulse 78 BPM 60-100 July 04 8:35pm Respiration 18 RPM 12-July 04 8:35pm Pulse Oximetry 97 % 95-100 July 04 022 8:35pm Blood Pressure Systolic 123 100-140 Chinedu [email or web address] 8:35pm Blood Pressure Diastolic 71 50-85 [facility] 2021 8:35pm Body Mass Index 24.9 July 04, 2021 10:30am
--- OUTSIDE RECORDS SUMMARY | 2023-12-05 13:35 | XMS_ITS | Continuity of Care Document ---
Author Name [facility] Address [address] [place] [id number] [facility] Address [address] [place] [address] Care Team Providers Care Nut Blanker Operator Name Role Phone PCP, of Choice Primary Care Physician Unavailab le Allergies, Adverse Reactions, Alerts No known allergies. Medications Active Medications Medication Units Route Start Date Status Mirtazapine MG July 03, 2021 Active Buprenorphine-Naloxone [Suboxone] Ja nuary 2021 Active Problem List Active Problems Medical Problem Onset Date Status Acute confusion Active Procedures Procedure Date Status [...] 03, 2021 9:19pm Automated Sodium Level July 03, 2021 9:19pm 141 mmol/L 137-145 Potassium Level July 03, 2021 9:19pm 3.9 mmol/L 3.6-5.0 Chloride Level July 03, 2021 9:19pm 105 mmol/L 98-107 Carbon Dioxide Level July 03, 2021 9:19pm 25 mmol/L 22-30 Anion Gap July 03, 2021 9:19pm 11 7-16 Blood Urea Nitrogen July 03, 2021 9:19pm 12 mg/dL 8-26 Creatinine July 03, 2021 9:19pm 0.74 mg/dL 0.66-1.25 Glomerular Filtration Rate Calc July 03, 2021 9:19pm > 60 mL/min 60.0- Glucose Level July 03, 2021 9:19pm 127 mg/dL High 70-100 Calcium Level July 03, 2021 9:19pm 9.7 mg/dL 8.4-10.2 Calcium Adjusted for Albumin July 03, 2021 9:19pm 9.5 mg/dL 8.4-10.2 Total Bilirubin July 03, 2021 9:19pm 1.3 mg/dL 0.2-1.3 Gamma Glutamyl Transpeptidase February 23, 2021 12:15pm TNP Test not perform ed UNABLE TO OBTAIN Aspartate Amino Transf (AST/SGOT) July 03, 2021 9:19pm 81 U/L High 17-59 Alanine Aminotransferase (ALT/SGPT) July 03, 2021 9:19pm 75 U/L High As of 10/17/19, th e [...] patients who consume Biotin. Total Protein July 03, 2021 9:19pm 8.1 g/dL 6.3-8.2 Albumin July 03, 2021 9:19pm 4.6 g/dL 3.5-5.0 Alkaline Phosphatase July 03, 2021 9:19pm 86 U/L 38-126 SARS-CoV-2 RNA (RT-PCR) July 04, [...] sheets for providers can be found at: [employer].gov/media/2924 13/download Fact sheets for patients can be found at: [employer]gov/media/3602 12/download New reagent in use as of [...] have a copy on file here at [facility]? No February 23, 2021 12:06pm Does patient have an Advanced Directive? No February 23, 2021 12:06pm Pt has a Living Will? No February 23, 2021 12:06pm Pt has a Power of Instrument Lens Inspector? No Sept 2020 12:06pm Chief Complaint and Reason for Visit Encounter Admit Date Chief Complaint Reason for V isit Registered Emergency July 03, 2021 7:55pm POSSIBLE OVERDOSE Hospital Discharge Instructions No known hospital discharge instructions. Hospital Discharge Medications Medication Dose Units Route Sig Qty Days Order Date Status Ins tructions Mirtazapine MG Chinedu [id number] Active Buprenorphine-Naloxo ne June Active Encounters Encounter Facility Location Admit/Visit Date Discharge/Departure Date Attending Provider Registered Emergency [facility] Emergency Department July 03, 2021 7:55pm Departed Clinical [facility] Laboratory February 23, 2021 12:06pm February 23, 2021 12:07pm Richard Hammond Functional Status Query Response Date Recorded Comment Comprehension Ability Understands Concepts July 03, 2021 8:18pm Mood/Behavior Withdrawn July 03, 2021 8:18pm Query Response Date Recorded Comment Living Situation Home With Family July 03, 2021 8:18pm Immunizations No known immunizations. Plan of Care No Known Plan of Care Information Social History Query Response Date Recorded Comment Alcohol Use Yes July 03, 2021 9:18pm Smoking Status Current every day smoker July 03 9:18pm Substance Use Treatment Yes July 03, 2021 9:18pm Substance/Street Drug Use Yes July 03 9:18pm alcohol intake frequency 3 or more drinks per day 2021 9:18pm substance use type marijuana heroin July 03, 2021 9:18pm Query Response Start Date Stop Date Smoking Status Current every day smoker Vital Signs Vital Reading Result Reference Range Collection Date/Time Weight 93.712 kg July 03 8:13pm Temperature 97.4 F 97.6 F-99.6 F July 03 8:13pm Pulse 98 BPM 60-100 July 04 5:39am Respiration 16 RPM 12-24 July 04 2:48am Pulse Oximetry 97 % 95-100 July 04 022 5:39am Blood Pressure Systolic 139 100-140 2021 5:39am Blood Pressure Diastolic 79 50-85 [facility] 2021 5:39am
--- OUTSIDE RECORDS SUMMARY | 2023-12-05 13:35 | XMS_ITS | Continuity of Care Document ---
Author Name [facility] Address [address] [place] [address] Organization [facility] Address [address] [place], [place] [address] Care Team Providers Care Garage Door Service Technician Name Role Phone PCP, of Choice Primary Care Physician Unavailab le Allergies, Adverse Reactions, Alerts No known allergies. Medications Active Medications Medication Units Route Start Date Status Mirtazapine MG July 03, 2021 Active Buprenorphine-Naloxone [Suboxone] Ja nuary 2021 Active Problem List No problem information available. Procedures Procedure Date Status EKG July 03, 2021 completed Relevant Diagnostic [...] 9:19pm 75 U/L High As of 10/17/19, the Reference Range for ALT/SGPT for adult patients has been updated. The Reference Range for ALT/SGPT has not been established for patients <18 years of age. Total Protein July 03, 2021 9:19pm 8.1 g/dL 6.3-8.2 Albumin July 03, 2021 9:19pm 4.6 g/dL 3.5-5.0 Alkaline Phosphatase July 03, 2021 9:19pm 86 U/L 38-126 Hepatitis A IgM Antibody February 23, 2021 [...] have a copy on file here at [facility]? No February 23, 2021 12:06pm Does patient have an Advanced Directive? No February 23, 2021 12:06pm Pt has a Living Will? No February 23, 2021 12:06pm Pt has a Power of Batch Blender? No Sept ember 2020 12:06pm Chief Complaint and Reason for Visit Encounter Admit Date Chief Complaint Reason for V isit Registered Emergency July 03, 2021 7:55pm POSSIBLE OVERDOSE Hospital Discharge Instructions No known hospital discharge instructions. Hospital Discharge Medications Medication Dose Units Route Sig Qty Days Order Date Status Ins tructions Mirtazapine MG 2021 Active Buprenorphine-Naloxo ne June Active Encounters Encounter Facility Location Admit/Visit Date Discharge/Departure Date Attending Provider Registered Emergency [facility] Emergency Department July 03, 2021 7:55pm Departed Clinical [facility] Laboratory February 23, 2021 12:06pm February [...] 97.6 F-99.6 F July 03 8:13pm Pulse 111 BPM 60-100 July 03 8:13pm Respiration 24 RPM 12-July 03 8:13pm Pulse Oximetry 97 % 95-100 July 03 022 8:13pm Blood Pressure Systolic 172 100-140 Chinedu hung 2021 8:13pm Blood Pressure Diastolic 102 50-85 [facility] stephanie 2021 8:13pm
--- OUTSIDE RECORDS SUMMARY | 2023-12-05 13:35 | XMS_ITS | Continuity of Care Document ---
Author Name [facility] Address [address] [place] [address] Organization [facility] Address [address] [place] [address] Care Team Providers Care Bariatric Nurse Name Role Phone PCP, of Choice Primary Care Physician Brent Vazquez Admitting Physician [phone] Brent Brantley Attending Physician Allergies, Adverse Reactions, [...] have a copy on file here at [facility]? No February 23, 2021 12:06pm Does patient have an Advanced Directive? No February 23, 2021 12:06pm Pt has a Living Will? No February 23, 2021 12:06pm Pt has a Power of Completions Engineer? No Sept emb2020 12:06pm Chief Complaint [...] Date Discharge/Departure Date Attending Provider Admitted Inpatient [facility] Progressive Care Unit July 04, 2021 10:46am Brent Brantley Departed Clinical [facility] Laboratory February 23, 2021 12:06pm February [...] 022 9:34pm Blood Pressure Systolic 114 100-140 [facility] 2021 9:34pm Blood Pressure Diastolic 71 50-85 [facility] 2021 9:34pm Body Mass Index 24.9 July 04, 2021 10:30am
--- OUTSIDE RECORDS SUMMARY | 2023-12-05 13:35 | XMS_ITS | Continuity of Care Document ---
Author Name [facility] Address [address] [place] [address] Organization [facility] Address [address] [place] [address] Care Team Providers Care Printed Circuit Board Preassembler Name Role Phone PCP, of Choice Primary [...] Acute confusion Active Procedures Procedure Date Status Blood Culture July 06, 2021 active MRI Brain w/wo Contrast July 05, [address] Head w/o Contrast July 04, 2021 completed EKG July 04, 2021 completed EKG July 03, 2021 completed Relevant Diagnostic Tests and/or Laboratory Data Laboratory Results Test Date/Time Result Interp. Ref. Range Result Co mment White Blood Count July 06, 2021 7:38am 7.41 1000/mm3 4.8-10.8 Red Blood Count July 06, 2021 7:38am 5.21 M/mm3 4.70-6.00 Hemoglobin July 06, 2021 7:38am 15.3 g/dL 14.0-18.0 Hematocrit July 06, 2021 7:38am 47.0 % 42-52 Mean Corpuscular Volume July 06, 2021 7:38am 90.2 fL 80.0-94.0 Mean Corpuscular Hemoglobin July 06, 2021 7:38am 29.4 pg 27-31 Mean Corpuscular Hemoglobin Concent July 06, 2021 7:38am 32.6 g/dL Low 33-37 Red Cell Distribution Width July 06, 2021 7:38am 12.3 % 11.5-14.5 Platelet Count July 06, 2021 7:38am 203 1000/mm3 140-440 Mean Platelet Volume July 06, 2021 7:38am 10.7 fL High 7.4-10.4 Neutrophils (%) (Auto) July 03, 2021 [...] 11:48am 5 mm/hr 0-20 Sodium Level July 06, 2021 7:38am 140 mmol/L 137-145 Potassium Level July 06, 2021 7:38am 4.4 mmol/L 3.6-5.0 Chloride Level July 06, 2021 7:38am 106 mmol/L 98-107 Carbon Dioxide Level July 06, 2021 7:38am 27 mmol/L 22-30 Anion Gap July 06, 2021 7:38am 7 7-16 Blood Urea Nitrogen July 06, 2021 7:38am 10 mg/dL 8-26 Creatinine July 06, 2021 7:38am 0.55 mg/dL Low 0.66-1.25 Glomerular Filtration Rate Calc July 06, 2021 7:38am > 60 mL/min 60.0- Glucose Level July 06, 2021 7:38am 105 mg/dL High 70-100 Calcium Level July 06, 2021 7:38am 9.0 mg/dL 8.4-10.2 Calcium Adjusted for Albumin July [...] sheets for patients can be found at: Cumulocity.gov/media/1363 12/download New reagent in use as of [...] have a copy on file here at [facility] [place] No February 23, 2021 12:06pm Does patient have an Advanced Directive? No February 23, 2021 12:06pm Pt has a Living Will? No February 23, 2021 12:06pm Pt has a Power of Field Coordinator? No Sept ember 2020 12:06pm Chief Complaint [...] Date Discharge/Departure Date Attending Provider Admitted Inpatient [facility] Progressive Care Unit July 04, 2021 10:46am Brent Brantley Departed Clinical [facility] Laboratory February 23, 2021 12:06pm February 23, 2021 12:07pm Richard Hammond Encounter Diagnosis Onset Date Acute confusion Metabolic encephalopathy Functional Status Query Response Date Recorded Comment Comprehension Ability Understands Concepts July 06, 2021 8:00am Mood/Behavior Appropriate July 06, 2021 8:00am Speech Appropriate Clear July 06, 2021 8:00am Query Response Date Recorded Comment Ambulation Ability Independent July 06, 2021 11:00 am Living Situation Home With Family July 06, 2021 11:00am Immunizations Immunization Name Date Given Type Covid-19 100mcg/0.5mL Moderna October 19, 2020 Hi storical Covid-19 100mcg/0.5mL Moderna January 26, 2021 Hi storical Plan of Care No Known Plan of Care Information Social History Query Response Date Recorded Comment Alcohol Use Yes July 06, 2021 11:00am Smoking Status Current every day smoker July 06 11:00am Substance Use Treatment Yes July 03, 2021 9:18pm Substance/Street Drug Use Yes July 06 11:00am alcohol intake frequency 3 or more drinks per day 2021 11:00am substance use type marijuana heroin July 03, 2021 9:18pm Query Response Start Date Stop Date Smoking Status Current every day smoker Vital Signs Vital Reading Result Reference Range Collection Date/Time Height 6 ft 4 in July 04 10:30am Weight 93 kg July 04 10:30am Temperature 98.4 F 97.6 F-99.6 F July 06 2:00pm Pulse 61 BPM 60-100 July 06 2:00pm Respiration 18 RPM 12-July 06 2:00pm Pulse Oximetry 97 % 95-100 July 06 2:00pm Blood Pressure Systolic 103 100-140 Chinedu hung 2021 2:00pm Blood Pressure Diastolic 55 50-85 Grayson brown 2021 2:00pm Body Mass Index 24.9 July 04, 2021 10:30am
--- OUTSIDE RECORDS SUMMARY | 2023-12-05 13:35 | XMS_ITS | Continuity of Care Document ---
Author Name [facility] Address [address] [place] [address] Organization [facility] Address [address] [place] [address] Care Team Providers Care Compensation And Hris Analyst Name Role Phone PCP, of Choice Primary [...] sheets for providers can be found at: Living Proof.gov/media/4141 13/download Fact sheets for patients can be found at: Living Proof.gov/media/2564 12/download New reagent in use as of [...] have [place] [facility] February 23, 2021 12:06pm Does patient have an Advanced Directive? No February 23, 2021 12:06pm Pt has a Living Will? No February 23, 2021 12:06pm Pt has a Power of Tearer? No Sept emb2020 12:06pm Chief Complaint and [...] Date Discharge/Departure Date Attending Provider Registered Emergency [facility] Emergency Department July 03, 2021 7:55pm Departed Clinical [facility] Laboratory February 23, 2021 12:06pm February 23, 2021 12:07pm Richard Hammond Functional Status Query Response Date Recorded Comment Comprehension Ability Understands Concepts July 03, 2021 8:18pm Mood/Behavior Withdrawn July 03, 2021 8:18pm Query Response Date Recorded Comment Living Situation Home With Family July 04, 2021 7:03am Immunizations No known immunizations. Plan of Care [...] 022 5:39am Blood Pressure Systolic 139 100-140 Chinedu [email or web address] 5:39am Blood Pressure Diastolic 79 50-85 Grayson [facility] 2021 5:39am
--- OUTSIDE RECORDS SUMMARY | 2023-12-05 13:35 | XMS_ITS | Continuity of Care Document ---
Author Name [facility] Address [address] [place] [address] Organization [facility] Address [address] [place] [address] Allergies, Adverse Reactions, Alerts No allergy information [...]
--- OUTSIDE RECORDS SUMMARY | 2023-12-05 13:35 | XMS_ITS | Continuity of Care Document ---
Author Name [facility] Address [address] [place] [address] Organization [facility] Address [address] [place] [address] Care Team Providers Care Quality Engineer Medical Device Name Role Phone PCP, of Choice Primary Care Physician Unavailab le Allergies, Adverse Reactions, Alerts No known allergies. Medications Active Medications Medication Units Route Start Date Status Mirtazapine MG July 03, 2021 Active Buprenorphine-Naloxone [Suboxone] Ja nuary 2021 Active Problem List Active Problems Medical Problem Onset Date Status Acute confusion Active Procedures Procedure Date Status CT Head w/o Contrast July 04, 2021 active EKG July 03, [...] TNP Test not performed UNABLE TO OBTAIN Urine Methadone Screen July 04, 2021 5:56am Negative ng/mL Advance Directives Advance Directive Response Recorded Date/ Time Do we [place] [facility] February 23, 2021 12:06pm Does patient have an Advanced Directive? No February 23, 2021 12:06pm Pt has a Living Will? No February 23, 2021 12:06pm Pt has a Power of Tombstone Setter? No Sept ember 2020 12:06pm Chief Complaint [...] Date Discharge/Departure Date Attending Provider Registered Emergency [facility] Emergency Department July 03, 2021 7:55pm Departed Clinical [facility] Laboratory February 23, 2021 12:06pm [...] 5:39am Blood Pressure Diastolic 79 50-85 Jun 2021 5:39am
--- OUTSIDE RECORDS SUMMARY | 2023-12-05 13:35 | XMS_ITS | Continuity of Care Document ---
Author Name [facility] Address [address] [place] [address] Organization [facility] Address [address] [place] [address] Care Team Providers Care Allergist Immunologist Name Role Phone PCP, of Choice Primary Care Physician Brent Vazquez Admitting Physician Brent Brantley Attending Physician [phone] Allergies, Adverse Reactions, Alerts Allergen Type Severity [...] have a copy on file here at [facility]? No February 23, 2021 12:06pm Does patient have an Advanced Directive? No February 23, 2021 12:06pm Pt has a Living Will? No February 23, 2021 12:06pm Pt has a Power of Airworthiness Safety Inspector? No Sept emb2020 12:06pm Chief Complaint and [...] 97.6 F-99.6 F July 05 9:34pm Pulse 63 BPM 60-100 July 05 11:48pm Respiration 18 RPM 12-24 July 05 9:34pm Pulse Oximetry 97 % 95-100 July 05 022 9:34pm Blood Pressure Systolic 114 100-140 [facility] 2021 9:34pm Blood Pressure Diastolic 71 50-85 [facility] 2021 9:34pm Body Mass Index 24.9 July 04, 2021 10:30am
--- OUTSIDE RECORDS SUMMARY | 2023-12-05 13:35 | XMS_ITS | Continuity of Care Document ---
Author Name Unknown Address [address] [place] [address] Phone Organization [facility] Address [address] [place] [address] Phone Care Team Providers Care Food Services Director Name Role Phone PCP, of Choice Primary Care Provider Richard Song Attending Provider Chief Complaint and Reason for Visit Chief Complaint Lab Social History Smoking Status Unknown if ever smoked Additional Data Assigned Sex Male Relevant Diagnostic Tests and/or Laboratory Data Laboratory Results Test Date/Time Result Interpretation Reference Range Result Comment Performing Site White Blood Count February 23, 2021 12:15pm TNP Test not performedCBCD CANCELLED, LAB UNABLE TO DRAW PATIENT MAIN LAB [address] [address] Red Blood Count February 23, 2021 12:15pm TNP Test not performedCBCD CANCELLED, LAB UNABLE TO DRAW PATIENT MAIN LAB [address] [address] Hemoglobin February 23, 2021 12:15pm TNP Test not performedCBCD CANCELLED, LAB UNABLE TO DRAW PATIENT MAIN LAB [address] [address] Hematocrit February 23, 2021 12:15pm TNP Test not performedCBCD CANCELLED, LAB UNABLE TO DRAW PATIENT MAIN LAB [address] [address] Mean Corpuscular Volume February 23, 2021 12:15pm TNP Test not performedCBCD CANCELLED, LAB UNABLE TO DRAW PATIENT MAIN LAB [address] [address] Mean Corpuscular Hemoglobin February 23, 2021 12:15pm TNP Test not performedCBCD CANCELLED, LAB UNABLE TO DRAW PATIENT MAIN LAB [facility] [address] [facility] [place] [address] Mean Corpuscular Hemoglobin Concent February 23, 2021 12:15pm TNP Test not performedCBCD CANCELLED, LAB UNABLE TO DRAW PATIENT MAIN LAB [facility] [address] [facility] [address] Red Cell Distribution Width February 23, 2021 12:15pm TNP Test not performedCBCD CANCELLED, LAB UNABLE TO DRAW PATIENT MAIN LAB [facility] [address] [facility] [address] Platelet Count February 23, 2021 12:15pm TNP Test not performedCBCD CANCELLED, LAB UNABLE TO DRAW PATIENT MAIN LAB [facility] [address] [facility] [address] Mean Platelet Volume February 23, 2021 12:15pm TNP Test not performedCBCD CANCELLED, LAB UNABLE TO DRAW PATIENT MAIN LAB [address] [place] [address] Neutrophils (%) (Auto) February 23, 2021 12:15pm TNP Test not performedCBCD CANCELLED, LAB UNABLE TO DRAW PATIENT MAIN LAB [address] [place] [address] Lymphocytes (%) (Auto) February 23, 2021 12:15pm TNP Test not performedCBCD CANCELLED, LAB UNABLE TO DRAW PATIENT MAIN LAB [address] [place] [address] Monocytes (%) (Auto) February 23, 2021 12:15pm TNP Test not performedCBCD CANCELLED, LAB UNABLE TO DRAW PATIENT MAIN LAB [address] [place] [address] Eosinophils (%) (Auto) February 23, 2021 12:15pm TNP Test not performedCBCD CANCELLED, LAB UNABLE TO DRAW PATIENT MAIN LAB [facility] [address] [facility] [place] [address] Basophils (%) (Auto) February 23, 2021 12:15pm TNP Test not performedCBCD CANCELLED, LAB UNABLE TO DRAW PATIENT MAIN LAB [address] [place] [address] Immature Granulocyte % (Auto) February 23, 2021 12:15pm TNP Test not performedCBCD CANCELLED, LAB UNABLE TO DRAW PATIENT MAIN LAB [address] [place] [address] Nucleated Red Blood Cells % (auto) February 23, 2021 12:15pm TNP Test not performedCBCD CANCELLED, LAB UNABLE TO DRAW PATIENT MAIN LAB [facility] [address] [facility] [address] Neutrophils # (Auto) February 23, 2021 12:15pm TNP Test not performedCBCD CANCELLED, LAB UNABLE TO DRAW PATIENT MAIN LAB [facility] [address] [facility] [address] Lymphocytes # (Auto) February 23, 2021 12:15pm TNP Test not performedCBCD CANCELLED, LAB UNABLE TO DRAW PATIENT MAIN LAB [facility] [address] [facility] [address] Monocytes # (Auto) February 23, 2021 12:15pm TNP Test not performedCBCD CANCELLED, LAB UNABLE TO DRAW PATIENT MAIN LAB [facility] [address] [facility] [address] Eosinophils # (Auto) February 23, 2021 12:15pm TNP Test not performedCBCD CANCELLED, LAB UNABLE TO DRAW PATIENT MAIN LAB [facility] [address] [facility] [address] Basophils # (Auto) February 23, 2021 12:15pm TNP Test not performedCBCD CANCELLED, LAB UNABLE TO DRAW PATIENT MAIN LAB [facility] [address] [facility] [address] Absolute Immature Granulocyte (auto February 23, 2021 12:15pm TNP Test not performedCBCD CANCELLED, LAB UNABLE TO DRAW PATIENT MAIN LAB [facility] [address] [facility] [address] Nucleated RBC Absolute Count (auto) February 23, 2021 12:15pm TNP Test not performedCBCD CANCELLED, LAB UNABLE TO DRAW PATIENT MAIN LAB [facility] [address] [facility] [address] Differential Method February 23, 2021 12:15pm Automated MAIN LAB [facility] [address] [facility] [address] Sodium Level February 23, 2021 12:15pm TNP Test not performedUNABLE TO OBTAIN MAIN LAB [facility] [address] [facility] [address] Potassium Level February 23, 2021 12:15pm TNP Test not performedUNABLE TO OBTAIN MAIN LAB [facility] [address] [facility] [address] Chloride Level February 23, 2021 12:15pm TNP Test not performedUNABLE TO OBTAIN MAIN LAB [facility] [address] [facility] [address] Carbon Dioxide Level February 23, 2021 12:15pm TNP Test not performedUNABLE TO OBTAIN MAIN LAB [facility] [address] [facility] [place] [address] Anion Gap February 23, 2021 12:15pm TNP Test not performedUNABLE TO OBTAIN MAIN LAB [facility] [address] [facility] [address] Blood Urea Nitrogen February 23, 2021 12:15pm TNP Test not performedUNABLE TO OBTAIN MAIN LAB [facility] [address] [facility] [address] Creatinine February 23, 2021 12:15pm TNP Test not performedUNABLE TO OBTAIN MAIN LAB [facility] [address] [facility] [place] [address] Glomerular Filtration Rate Calc February 23, 2021 12:15pm TNP Test not performedUNABLE TO OBTAIN MAIN LAB [facility] [address] [facility] [address] Glucose Level February 23, 2021 12:15pm TNP Test not performedUNABLE TO OBTAIN MAIN LAB [facility] [address] [facility] [address] Calcium Level February 23, 2021 12:15pm TNP Test not performedUNABLE TO OBTAIN MAIN LAB [address] [address] Calcium Adjusted for Albumin February 23, 2021 12:15pm TNP Test not performedUNABLE TO OBTAIN MAIN LAB [address] [address] Total Bilirubin February 23, 2021 12:15pm TNP Test not performedUNABLE TO OBTAIN MAIN LAB [address] [address] Gamma Glutamyl Transpeptida se February 23, 2021 12:15pm TNP Test not performedUNABLE TO OBTAIN MAIN LAB [facility] [address] [facility] [address] Aspartate Amino Transf (AST/SGOT) February 23, 2021 12:15pm TNP Test not performedUNABLE TO OBTAIN MAIN LAB [facility] [address] [facility] [address] Alanine Aminotransfe rase (ALT/SGPT) February 23, 2021 12:15pm TNP Test not performedUNABLE TO OBTAIN MAIN LAB [facility] [address] [facility] [address] Total Protein February 23, 2021 12:15pm TNP Test not performedUNABLE TO OBTAIN MAIN LAB [address] [place] [address] Albumin February 23, 2021 12:15pm TNP Test not performedUNABLE TO OBTAIN MAIN LAB [address] [address] Alkaline Phosphatase February 23, 2021 12:15pm TNP Test not performedUNABLE TO OBTAIN MAIN LAB [address] [address] Hepatitis A IgM Antibody February 23, 2021 12:15pm TNP Test not performedUNABLE TO OBTAIN [facility] Hepatitis B Surface Antigen February 23, 2021 12:15pm TNP Test not performedUNABLE TO OBTAIN [facility] Hepatitis B Surface Antibody February 23, 2021 12:15pm TNP Test not performedUNABLE TO OBTAIN [facility] Hepatitis B Surface Antibody, Quant February 23, 2021 12:15pm TNP Test not performedUNABLE TO OBTAIN [facility] Hepatitis B Core Total Antibody February 23, 2021 12:15pm TNP Test not performedUNABLE TO OBTAIN [facility] Hepatitis C IgG Antibody February 23, 2021 12:15pm TNP Test not performedUNABLE TO OBTAIN MAIN LAB [address] [address] Hepatitis C Antibody Comment February 23, 2021 12:15pm TNP Test not performedUNABLE TO OBTAIN MAIN LAB [address] [address] HCV RNA Qnt (PCR) w/Genotype Reflex February 23, 2021 12:15pm TNP Test not performedUNABLE TO OBTAIN [facility] Hepatitis A IgG Antibody February 23, 2021 12:15pm TNP Test not performedUNABLE TO OBTAIN [facility] Advance Directives Advance Directive Response Recorded Date/ Time Does patient have an Advanced Directive? No February 23, 2021 12:06pm Do we have a copy on file here at [facility] [place]? No February 23, 2021 12:06pm Pt has a Living Will? No February 23, 2021 12:06pm Do we have a copy on file here at [facility] [place]? No February 23, 2021 12:06pm Pt has a Power of Painter Set? No Feb 12:06pm Do we have a copy on file here at [facility]? No February 23, 2021 12:06pm Insurance Providers Guarantor WILMA SMITH Address [address] [place] [address] Contact Info. Home Phone: Payer Policy Id Coverage Id Subscriber's Name Subscriber Id Effective Date Expiration Date [place] [id number] WILMA SMITH [id number] SELF PAY Self N/A Encounters Encounter Location(s) Arrival/Admit Date Discharge/Depart Date Provider(s) Departed Clinical [facility] February 23, 2021 12:06pm February 23, 2021 12:07pm LISHA Millan
--- OUTSIDE RECORDS SUMMARY | 2023-12-05 13:35 | XMS_ITS | Continuity of Care Document ---
Author Name [facility] Address [address] [place] [id number] Organization [facility] Address [address] [place] [address] Care Team Providers Care Hand Outside Cutter Name Role Phone PCP, of Choice Primary Care Physician Brent Vazquez Admitting Physician Brent Brantley Attending Physician Allergies, Adverse Reactions, Alerts Allergen Type Severity Reaction Last Updated Verified Status penicillin V Allergy Mild rash July 04, 2021 Y Ac tive Medications Active Medications Medication Dose Units Route Sig Qty Start Date St [facility] Mirtazapine 15 MG ORAL BEDTIME July 03, 2021 Active Buprenorphine-Naloxone [Suboxone] 1 film SUBLINGUAL DAILY July 03, 2021 A ctive Olanzapine 5 MG ORAL DAILY July 06 022 Active Problem List Active Problems Medical Problem [...] sheets for patients can be found at: QBotix.gov/Prot-On/1363 12/download New reagent in use as of [...] have a copy on file here at [facility] [place]? No February 23, 2021 12:06pm Does patient have an Advanced Directive? No February 23, 2021 12:06pm Pt has a Living Will? No February 23, 2021 12:06pm Pt has a Power of Drug Abuse Resistance Education Officer? No Sept 2020 12:06pm Chief Complaint and Reason for Visit Encounter Admit Date Chief Complaint Reason for V vika Discharged Inpatient July 04, 2021 10:46am POSSIBLE OVERDOSE Acute confusion Metabolic encephalopathy Hospital Discharge Instructions Additional Discharge Instructions You roe ve been prescribed one month of Olanzapine 5mg by mouth daily. Please start taking this tomorrow. If it seems sedating to you, you can move the time to the evening. Never take more than the prescribed amount and follow up with your primary care physician for further monitoring, medication adjustment or decision to discontinue treatment at a month. Substance abuse treatment: Please follow up with [facility] [place] or [facility] in [facility] ([phone]) Please also follow up for further counseling and mental health support. [facility] at the above number is a good resource for this as well. You can also contact [facility] [phone] You were tested for HIV during this hospitalization and were negative. You had an MRI brain and that was normal. GENERAL DISCHARGE INSTRUCTIONS OUR GOAL You have been cared for by the Hospital Care Team at [facility] ([facility]). Our goal is to make sure that your discharge from the hospital is as safe as possible. This means making sure that: You understand the reason for your hospitalization. You understand your medications at discharge including any new prescriptions, changes to your medications, and stopped medications. You know the symptoms of your illness and when to call for help. You understand your discharge plan and instructions. A summary of your care will be sent to your primary care provider and other members of your care team that you identify. Discharge Diagnosis: Overdose of mirtazapine Diet: Resume Previous Diet Additional Symptoms to Report to Your Provider: movement disturbances, difficulty urinating, fatigue/lathargy WHO TO CALL CONTACT US AT [facility] IF: You have not seen your primary care provider if you have questions regarding your care in the hospital including questions regarding your medications, discharge instructions, or services arranged prior to seeing your primary care provider. oIf you were discharged from the Progressive Care Unit, contact us at: [phone] CONTACT YOUR PRIMARY CARE IF You are concerned that your symptoms are worsening or have returned, to see if your appointment needs to be changed or you need to be seen sooner. WHEN TO GO TO THE EMERGENCY DEPARTMENT The Emergency Department is there for you when you need immediate care for serious illness, injury or severe symptoms. You should call 911 or return to the Emergency Department IF THE SYMPTOMS OF YOUR RECENT HOSPITALIZATION HAVE RETURNED OR SEVERELY WORSENED. THESE MIGHT INCLUDE: movement disturbances, difficulty urinating, fatigue/lathargy Uncontrolled bleeding Severe pain not controlled by available oral pain medications Persistent vomiting or vomiting blood Fainting Unexpected shortness of breath or difficulty breathing Persistent high fever greater than 101 Seizure No Instructions/Education Pr [facility]ided Hospital Discharge Medications Medication Dose Units Route Sig Qty Days Order Date Status Ins tructions Mirtazapine 15 MG ORAL BEDTIME 2021 Active Buprenorphine-N aloxone 1 film SUBLINGUAL DAILY June 182021 Active Olanzapine 5 MG ORAL DAILY 2021 Active Encounters Encounter Facility Location Admit/Visit Date Discharge/Departure Date Attending Provider Discharged Inpatient [facility] Progressive Care Unit July 04, 2021 10:46am July 06, 2021 4:30pm Brent Brantley Departed Clinical [facility] Laboratory February 23, 2021 12:06pm [...] 97.6 F-99.6 F July 06 2:00pm Pulse 85 BPM 60-100 July 06 4:00pm Respiration 18 RPM 12-July 06 2:00pm Pulse Oximetry 97 % 95-100 July 06 022 2:00pm Blood Pressure Systolic 103 100-140 Chinedu hung 2021 2:00pm Blood Pressure Diastolic 55 50-85 Grayson [facility] 2021 2:00pm Body Mass Index 24.9 July 04, 2021 10:30am
--- OUTSIDE RECORDS SUMMARY | 2023-12-05 13:35 | XMS_ITS | Continuity of Care Document ---
Author Name Unknown Address [address] [place] [address] Phone [facility] Address [address] [place] [address] Phone Care Team Providers Care Decision Support Manager Name Role Phone PCP, of Choice Primary Care Provider LISHA Song Attending Provider [phone] MD Brent Brantley Admit Provider MD Brent Brantley Attending Provider [phone] Chief Complaint and Reason for Visit Chief Complaint Lab POSSIBLE OVERDOSE Reason for Visit Acute confusion Metabolic encephalopathy Allergies, Adverse Reactions, Alerts Allergen Type Severity Reaction Last Updated Verified Status penicillin V Allergy Mild rash July 04, 2021 8:36am Y es Active Social History Smoking Status Status Start Date End Date Date of Observa tion Smokes tobacco daily (finding) July 04, 2021 7:03am Observation Status Observation Response Date of Response Alcohol Use Yes July 04 7:03am alcohol intake frequency 3 or more drinks per da y July 04, 2021 7:03am Substance/Street Drug Use Yes Donna 2021 7:03am Substance Use Treatment Yes July 03, 2021 9:18pm substance use type marijuana July 03, 2021 9:18pm heroin July 03 9:18pm Smoking Status Current every day smoker Elo 17th, 2022 7:03am Additional Data Assigned Sex Male Problems Active Problems Medical Problem Onset Date Status Metabolic encephalopathy Active Acute confusion Active Medications Medication Status Dose Units Route Directions Qty Days St art Date End Date Instructions Mirtazapine Active 15 MG PO DAILY 2021 8:20pm Buprenorphine -Naloxone (Suboxone) 12-3 mg film Active 1 film SL DAILY July 03, 2021 8:20pm Immunizations Immunization Event Date Not Given Reason Dose Number Joiner Lot Number Vaccine Information Statement (VIS) Detail Covid-19 100mcg/0.5mL Moderna October 19, 2020 Covid-19 100mcg/0.5mL Moderna January 26, 2021 Procedures Procedure Date Performed Status EKG July 03, 2021 9:07pm comple leo CT Head w/o Contrast July 04, 2021 5:49am c ompleted Relevant Diagnostic Tests and/or Laboratory Data Laboratory Results Test Date/Time Result Interpretation Reference Range Result Comment Performing Site White Blood Count February 23, 2021 11:15am TNP Test not performedCBCD CANCELLED, LAB UNABLE TO DRAW PATIENT MAIN LAB [address] [address] White Blood Count July 03, 2021 9:19pm 15.30 1000/mm3 4.8-10.8 MAIN LAB [address] [address] Red Blood Count February 23, 2021 11:15am TNP Test not performedCBCD CANCELLED, LAB UNABLE TO DRAW PATIENT MAIN LAB [address] [address] Red Blood Count July 03, 2021 9:19pm 5.60 M/mm3 4.70-6.00 MAIN LAB [address] [address] Hemoglobin February 23, 2021 11:15am TNP Test not performedCBCD CANCELLED, LAB UNABLE TO DRAW PATIENT MAIN LAB [facility] [address] [facility] [address] Hemoglobin July 03, 2021 9:19pm 16.3 g/dL 14.0-18.0 MAIN LAB [address] [address] Hematocrit February 23, 2021 11:15am TNP Test not performedCBCD CANCELLED, LAB UNABLE TO DRAW PATIENT MAIN LAB [address] [address] Hematocrit July 03, 2021 9:19pm 48.8 % 42-52 MAIN LAB [facility] [address] [facility] [address] Mean Corpuscular Volume February 23, 2021 11:15am TNP Test not performedCBCD CANCELLED, LAB UNABLE TO DRAW PATIENT MAIN LAB [facility] [address] [facility] [address] Mean Corpuscular Volume July 03, 2021 9:19pm 87.1 fL 80.0-94.0 MAIN LAB [facility] [address] [facility] [address] Mean Corpuscular Hemoglobin February 23, 2021 11:15am TNP Test not performedCBCD CANCELLED, LAB UNABLE TO DRAW PATIENT MAIN LAB [facility] [address] [facility] [address] Mean Corpuscular Hemoglobin July 03, 2021 9:19pm 29.1 pg 27-31 MAIN LAB [address] [address] Mean Corpuscular Hemoglobin Concent February 23, 2021 11:15am TNP Test not performedCBCD CANCELLED, LAB UNABLE TO DRAW PATIENT MAIN LAB [facility] [address] [facility] [address] Mean Corpuscular Hemoglobin Concent July 03, 2021 9:19pm 33.4 g/dL 33-37 MAIN LAB [facility] [address] [facility] [address] Red Cell Distribution Width February 23, 2021 11:15am TNP Test not performedCBCD CANCELLED, LAB UNABLE TO DRAW PATIENT MAIN LAB [facility] [address] [facility] [address] Red Cell Distribution Width July 03, 2021 9:19pm 12.3 % 11.5-14.5 MAIN LAB [facility] [address] [facility] [address] Platelet Count February 23, 2021 11:15am TNP Test not performedCBCD CANCELLED, LAB UNABLE TO DRAW PATIENT MAIN LAB [facility] [address] [facility] [address] Platelet Count July 03, 2021 9:19pm 265 1000/mm3 140-440 MAIN LAB [facility] [address] [facility] [address] Mean Platelet Volume February 23, 2021 11:15am TNP Test not performedCBCD CANCELLED, LAB UNABLE TO DRAW PATIENT MAIN LAB [address] [place] [address] Mean Platelet Volume July 03, 2021 9:19pm 9.9 fL 7.4-10.4 MAIN LAB [address] [address] Neutrophils (%) (Auto) February 23, 2021 11:15am TNP Test not performedCBCD CANCELLED, LAB UNABLE TO DRAW PATIENT MAIN LAB [address] [address] Neutrophils (%) (Auto) July 03, 2021 9:19pm 74.9 % 40.0-72.0 MAIN LAB [address] [place] [address] Lymphocytes (%) (Auto) February 23, 2021 11:15am TNP Test not performedCBCD CANCELLED, LAB UNABLE TO DRAW PATIENT MAIN LAB [address] [place] [address] Lymphocytes (%) (Auto) July 03, 2021 9:19pm 17.4 % 17-45 MAIN LAB [address] [address] Monocytes (%) (Auto) February 23, 2021 11:15am TNP Test not performedCBCD CANCELLED, LAB UNABLE TO DRAW PATIENT MAIN LAB [address] [place] [address] Monocytes (%) (Auto) July 03, 2021 9:19pm 6.3 % 3-11 MAIN LAB [address] [place] [address] Eosinophils (%) (Auto) February 23, 2021 11:15am TNP Test not performedCBCD CANCELLED, LAB UNABLE TO DRAW PATIENT MAIN LAB [address] [place] [address] Eosinophils (%) (Auto) July 03, 2021 9:19pm 0.3 % 0-3 MAIN LAB [address] [place] [address] Basophils (%) (Auto) February 23, 2021 11:15am TNP Test not performedCBCD CANCELLED, LAB UNABLE TO DRAW PATIENT MAIN LAB [address] [place] [address] Basophils (%) (Auto) July 03, 2021 9:19pm 0.5 % 0-1 MAIN LAB [address] [place] [address] Immature Granulocyte % (Auto) February 23, 2021 11:15am TNP Test not performedCBCD CANCELLED, LAB UNABLE TO DRAW PATIENT MAIN LAB [address] [address] Immature Granulocyte % (Auto) July 03, 2021 9:19pm 0.6 % 0-1 MAIN LAB [address] [address] Nucleated Red Blood Cells % (auto) February 23, 2021 11:15am TNP Test not performedCBCD CANCELLED, LAB UNABLE TO DRAW PATIENT MAIN LAB [address] [address] Neutrophils # (Auto) February 23, 2021 11:15am TNP Test not performedCBCD CANCELLED, LAB UNABLE TO DRAW PATIENT MAIN LAB [address] [address] Neutrophils # (Auto) July 03, 2021 9:19pm 11.48 1000/mm3 1.4-6.5 MAIN LAB [address] [address] Lymphocytes # (Auto) February 23, 2021 11:15am TNP Test not performedCBCD CANCELLED, LAB UNABLE TO DRAW PATIENT MAIN LAB [address] [address] Lymphocytes # (Auto) July 03, 2021 9:19pm 2.66 1000/mm3 1.2-3.4 MAIN LAB [address] [address] Monocytes # (Auto) February 23, 2021 11:15am TNP Test not performedCBCD CANCELLED, LAB UNABLE TO DRAW PATIENT MAIN LAB [address] [address] Monocytes # (Auto) July 03, 2021 9:19pm 0.96 1000/mm3 0.0-0.8 MAIN LAB [address] [address] Eosinophils # (Auto) February 23, 2021 11:15am TNP Test not performedCBCD CANCELLED, LAB UNABLE TO DRAW PATIENT MAIN LAB [address] [address] Eosinophils # (Auto) July 03, 2021 9:19pm 0.04 1000/mm3 0.0-0.7 MAIN LAB [address] [place] [address] Basophils # (Auto) February 23, 2021 11:15am TNP Test not performedCBCD CANCELLED, LAB UNABLE TO DRAW PATIENT MAIN LAB [facility] [address] [facility] [address] Basophils # (Auto) July 03, 2021 9:19pm 0.07 1000/mm3 0.0-0.1 MAIN LAB [address] [address] Absolute Immature Granulocyte (auto February 23, 2021 11:15am TNP Test not performedCBCD CANCELLED, LAB UNABLE TO DRAW PATIENT MAIN LAB [facility] [address] [facility] [address] Absolute Immature Granulocyte (auto July 03, 2021 9:19pm 0.1 0-1 MAIN LAB [address] [address] Nucleated RBC Absolute Count (auto) February 23, 2021 11:15am TNP Test not performedCBCD CANCELLED, LAB UNABLE TO DRAW PATIENT MAIN LAB [address] [address] Differential Method February 23, 2021 11:15am Automated MAIN LAB [address] [address] Differential Method July 03, 2021 9:19pm Automated MAIN LAB [address] [address] Sodium Level February 23, 2021 11:15am TNP Test not performedUNABLE TO OBTAIN MAIN LAB [address] [address] Sodium Level July 04, 2021 6:52am 139 mmol/L 137-145 MAIN LAB [address] [address] Potassium Level February 23, 2021 11:15am TNP Test not performedUNABLE TO OBTAIN MAIN LAB [address] [address] Potassium Level July 04, 2021 6:52am 4.4 mmol/L 3.6-5.0 MAIN LAB [address] [address] Chloride Level February 23, 2021 11:15am TNP Test not performedUNABLE TO OBTAIN MAIN LAB [address] [address] Chloride Level July 04, 2021 6:52am 103 mmol/L 98-107 MAIN LAB [address] [address] Carbon Dioxide Level February 23, 2021 11:15am TNP Test not performedUNABLE TO OBTAIN MAIN LAB [address] [address] Carbon Dioxide Level July 04, 2021 6:52am 28 mmol/L 22-30 MAIN LAB [address] [address] Anion Gap February 23, 2021 11:15am TNP Test not performedUNABLE TO OBTAIN MAIN LAB [address] [address] Anion Gap July 04, 2021 6:52am 8 7-16 MAIN LAB [place] [address] Blood Urea Nitrogen February 23, 2021 11:15am TNP Test not performedUNABLE TO OBTAIN MAIN LAB [place] [address] Blood Urea Nitrogen July 04, 2021 6:52am 13 mg/dL 8-26 MAIN LAB [address] [address] Creatinine February 23, 2021 11:15am TNP Test not performedUNABLE TO OBTAIN MAIN LAB [address] [address] Creatinine July 04, 2021 6:52am 0.67 mg/dL 0.66-1.25 MAIN LAB [address] [address] Glomerular Filtration Rate Calc February 23, 2021 11:15am TNP Test not performedUNABLE TO OBTAIN MAIN LAB [address] [address] Glomerular Filtration Rate Calc July 04, 2021 6:52am > 60 mL/min >60.0 MAIN LAB [address] [address] Glucose Level February 23, 2021 11:15am TNP Test not performedUNABLE TO OBTAIN MAIN LAB [address] [address] Glucose Level July 04, 2021 6:52am 101 mg/dL 70-100 MAIN LAB [address] [address] Calcium Level February 23, 2021 11:15am TNP Test not performedUNABLE TO OBTAIN MAIN LAB [address] [address] Calcium Level July 04, 2021 6:52am 9.5 mg/dL 8.4-10.2 MAIN LAB [address] [address] Calcium Adjusted for Albumin February 23, 2021 11:15am TNP Test not performedUNABLE TO OBTAIN MAIN LAB [address] [address] Calcium Adjusted for Albumin July 04, 2021 6:52am 9.5 mg/dL 8.4-10.2 MAIN LAB [address] [address] Total Bilirubin February 23, 2021 11:15am TNP Test not performedUNABLE TO OBTAIN MAIN LAB [address] [address] Total Bilirubin July 04, 2021 6:52am 1.2 mg/dL 0.2-1.3 MAIN LAB [address] [address] Gamma Glutamyl Transpeptida se February 23, 2021 11:15am TNP Test not performedUNABLE TO OBTAIN MAIN LAB [address] [address] Aspartate Amino Transf (AST/SGOT) February 23, 2021 11:15am TNP Test not performedUNABLE TO OBTAIN MAIN LAB [address] [address] Aspartate Amino Transf (AST/SGOT) July 04, 2021 6:52am 63 U/L 17-59 MAIN LAB [address] [address] Alanine Aminotransfe rase (ALT/SGPT) February 23, 2021 11:15am TNP Test not performedUNABLE TO OBTAIN MAIN LAB [address] [address] Alanine Aminotransfe rase (ALT/SGPT) July 04, 2021 6:52am 67 U/L <50 As of 10/17/19, the Reference Range for ALT/SGPT for adult patients has been updated. The Reference Range for ALT/SGPT has not been established for patients <18 years of age. MAIN LAB [address] [address] Troponin I July 03, 2021 9:19pm < 0.012 ng/mL 0-0.034 Reference Range: <0.034 ng/mL AMI Cut-off 0.120 ng/mLThe results of this assay can be falsely decreased in patients who consume Biotin. [facility] LAB [address] [address] Total Protein February 23, 2021 11:15am TNP Test not performedUNABLE TO OBTAIN MAIN LAB [address] [address] Total Protein July 04, 2021 6:52am 7.3 g/dL 6.3-8.2 MAIN LAB [address] [address] Albumin February 23, 2021 11:15am TNP Test not performedUNABLE TO OBTAIN [facility] LAB [address] [address] Albumin July 04, 2021 6:52am 4.3 g/dL 3.5-5.0 MAIN LAB [address] [address] Alkaline Phosphatase February 23, 2021 11:15am TNP Test not performedUNABLE TO OBTAIN [address] [address] Alkaline Phosphatase July 04, 2021 6:52am 77 U/L 38-[address] [address] SARS-CoV-2 RNA (RT-PCR) July 04, 2021 6:02am Negative Negative Note: This RT-PCR assay is intended for the in vitro qualitative detection of nucleic acid from SARS-CoV-2.This test has not been FDA cleared or approved. This test has been authorized by the FDA under an Emergency Use Authorization (EUA) for use by authorized laboratories. Fact sheets for providers can be found at: fda.gov/media/ 93177/downloadF act sheets for patients can be found at: fda.gov/media/1 80451/downloadN ew reagent in use as of 05/05/2021. MAIN LAB [address] [address] Hepatitis A IgM Antibody February 23, 2021 11:15am TNP Test not performedUNABLE TO OBTAIN [facility] Hepatitis B Surface Antigen February 23, 2021 11:15am TNP Test not performedUNABLE TO OBTAIN [facility] Hepatitis B Surface Antibody Latoya 8th, 2021 11:15am TNP Test not performedUNABLE TO OBTAIN [facility] Hepatitis B Surface Antibody, Quant February 23, 2021 11:15am TNP Test not performedUNABLE TO OBTAIN [facility] Hepatitis B Core Total Antibody February 23, 2021 11:15am TNP Test not performedUNABLE TO OBTAIN [facility] Hepatitis C IgG Antibody February 23, 2021 11:15am TNP Test not performedUNABLE TO OBTAIN MAIN LAB [facility] [address] [facility] [address] Hepatitis C Antibody Comment February 23, 2021 11:15am TNP Test not performedUNABLE TO OBTAIN MAIN LAB [facility] [address] [facility] [address] HCV RNA Qnt (PCR) w/Genotype Reflex February 23, 2021 11:15am TNP Test not performedUNABLE TO OBTAIN [facility] Hepatitis A IgG Antibody February 23, 2021 11:15am TNP Test not performedUNABLE TO OBTAIN [facility] Urine Methadone Screen July 04, 2021 5:56am Negative ng/mL Cutoff:200 MAIN LAB [facility] [address] [facility] [address] Diagnostic Imaging Reports Report Dictated Date/Time Dictated By Status Electrocardiogram July 03, 2021 8:32pm Richie King MD completed [facility] EKG PATIENT NAME: FRANDY SMITH MRN: [id number] DATE OF : 1990 ATTENDING PHYSICIAN: PRIMARY CARE PHYS: No Pcp DICTATING PHYSICIAN: Richie King MD REPORT STATUS: Signed Test Reason : overdose Blood Pressure : / mmHG Vent. Rate : 081 BPM Atrial Rate : 081 BPM P-R Int : 126 ms QRS Dur : 098 ms QT Int : 376 ms P-R-T Axes : 071 067 054 degrees QTc Int : 436 ms Normal sinus rhythm non specific T wave abnormality V2 incomplete right bundle No previous ECGs available Confirmed by Richie King ([id number]) on 07/03/2021 9:50:49 PM Referred By: Richie King Confirmed By:Richie King 07/03/21 215 Report Dictated Date/Time Dictated By Status Radiology Report July 04, 2021 6:57am Rachel alexandra MD completed [facility] CAT SCAN REPORT PATIENT NAME: FRANDY SMITH [id number] DATE OF : 1990 ATTENDING/ER PHYSICIAN: ER/ATTENDING PHYSICIAN: Richie King MD PRIMARY CARE PHYS: No Pcp ADMITTING PHYSICIAN: CONSULTING PHYSICIAN: PROCEDURE DATE: 07/04/21 REPORT STATUS: Signed DICTATING PHYSICIAN: Rachel Moreira MD REASON FOR EXAM: ams PROCEDURE INFORMATION: Exam: CT Head Without Contrast Exam date and time: 07/04/2021 6:06 AM Age: 30 years old Clinical indication: Altered mental status/memory loss; Confusion or disorientation; Patient HX: PT arrived with his sister after his sister had concerns for frandy taking something as he is having AMS and brought his sister a bottle of mirtazapine voicing he would like to take control of his own , PT was recently in a sober house but is currently living with his sister, sister reports PT had a recent relaps of heroin use, last known date PT was sleep was last Sunday. TECHNIQUE: Imaging protocol: Computed tomography of the head without contrast. Radiation optimization: All CT scans at this facility use at least one of these dose optimization techniques: automated exposure control; mA and/or kV adjustment per patient size (includes targeted exams where dose is matched to clinical indication); or iterative reconstruction. COMPARISON: No relevant prior studies available. FINDINGS: Brain: Normal. No hemorrhage. Unremarkable white matter. No mass effect. Cerebral ventricles: No ventriculomegaly. Paranasal sinuses: Visualized sinuses are unremarkable. No fluid levels. Mastoid air cells: Visualized mastoid air cells are well aerated. Bones/joints: Unremarkable. No acute fracture. Soft tissues: Unremarkable. Limitations: Study is technically limited. IMPRESSION: Limited study. No gross abnormality detected. Electronically Signed By : Rachel Moreira MD dd: [id number] Vital Signs Vital Reading Result Reference Range Collection Date/Time Weight 93.71 kg July 03, 2 022 8:13pm Body Temperature 97.4 [degF] 97.6-99.6 June 8:13pm Heart Rate 106 /min 60-100 July 04, 2 022 8:09am Respiratory rate 16 /min 12-24 Elo 17t h, 2022 8:09am Oxygen saturation by Pulse oximetry 98 % 95-100 July 04, 2021 8 :09am BP Systolic 163 mm[Hg] 100-140 July 04, 022 8:09am BP Diastolic 98 mm[Hg] 50-85 July 04, 022 8:09am Advance Directives Advance Directive Response Recorded Date/ Time Does patient have an Advanced Directive? No February 23, 2021 11:06am Do we have a copy on file here at [facility]? No February 23, 2021 11:06am Pt has a Living Will? No February 23, 2021 11:06am Do we have a copy on file here at [facility]? No February 23, 2021 11:06am Pt has a Power of Bench Worker Apprentice? No Feb 11:06am Do we have a copy on file here at [facility]? No February 23, 2021 11:06am Insurance Providers Guarantor FRANDY SMITH Address [address] [place] [address] Contact Info. Home Phone: Payer Policy Id Coverage Id Subscriber's Name Subscriber Id Effective Date Expiration Date [place] [id number] FRANDY SMITH [id number] SELF PAY Self N/A Encounters Encounter Location(s) Arrival/Admit Date Discharge/Depart Date Provider(s) Departed Clinical [facility] February 23, 2021 11:06am February 23, 2021 11:07am LISHA Millan Admitted Inpatient [facility] e Care Unit July 04, 2021 10:46am Brent Brantley MD Recent Diagnosis Onset Date Acute confusion Metabolic encephalopathy Functional Status Observation Response Date Recorded Living Situation Home July 04 7:03am With Family July 04 7:03am Mental Status Observation Response Date Recorded Comprehension Ability Understands Concepts Devon ry 2021 8:18pm Speech Appropriate July 04 8:10am Mood/Behavior Withdrawn July 03 8:18pm Assessments Diagnosis Onset Date Resolution Status Acute confusion acute Metabolic encephalopathy acu te
--- OUTSIDE RECORDS SUMMARY | 2023-12-05 13:35 | XMS_ITS | Continuity of Care Document ---
Author Name [facility] Address [address] [place] [id number] Organization [facility] Address [address] [place] [id number] Care Team Providers Care Waste Paper Hammermill Operator Name Role Phone PCP, of Choice Primary Care Physician Brent Vazquez Admitting Physician Brent Brantley Attending Physician [phone] Allergies, Adverse Reactions, Alerts Allergen Type Severity [...] Problem Onset Date Status Metabolic encephalopathy Active Delusions Active Acute confusion Active Procedures Procedure Date [...] sheets for patients can be found at: [employer].gov/media/1363 12/download New reagent in use as of [...] have a copy on file here at [facility]? No February 23, 2021 12:06pm Does patient have an Advanced Directive? No February 23, 2021 12:06pm Pt has a Living Will? No February 23, 2021 12:06pm Pt has a Power of Credit Or Loans Officer? No Sept emb2020 12:06pm Chief Complaint and [...] Please follow up with [facility] in [place] or [facility] in [facility] ([phone]) Please also follow up for further counseling and mental health support. [facility] at the above number is a good resource for this as well. You can also contact [facility] [phone] You were tested for HIV during this hospitalization and were negative. You had an MRI brain and that was normal. GENERAL DISCHARGE INSTRUCTIONS OUR GOAL You have been cared for by the Hospital Care Team at [facility] ([facility]). Our goal is to make sure that [...] fatigue/lathargy WHO TO CALL CONTACT US AT [facility] IF: You have not seen your primary care provider if you have questions regarding your care in the hospital including questions regarding your medications, discharge instructions, or services arranged prior to seeing your primary care provider. oIf you were discharged from the Progressive Care Unit, contact us at: [phone] CONTACT YOUR PRIMARY CARE IF You are [...] Date Discharge/Departure Date Attending Provider Discharged Inpatient [facility] Progressive Care Unit July 04, 2021 10:46am July 06, 2021 4:30pm Brent Brantley Departed Clinical [facility] Laboratory February [...] 60-100 July 06 4:00pm Respiration 18 RPM 12-24 July 06 2:00pm Pulse Oximetry 97 % 95-100 July 06 022 2:00pm Blood Pressure Systolic 103 100-140 Chinedu basurtoy 2021 2:00pm Blood Pressure Diastolic 55 50-85 [facility] 2021 2:00pm Body Mass Index 24.9 July 04, 2021 10:30am
--- OUTSIDE RECORDS SUMMARY | 2023-12-05 13:35 | XMS_ITS | Continuity of Care Document ---
Author Name Unknown Address [address] [place] [address] Phone [facility] Address [address] [place] [address] Phone Care Team Providers [facility] Room Attendant Name Role Phone PCP, of Choice Primary Care Provider LISHA Song Attending Provider MD Brent Brantley Admit Provider MD Brent Brantley Attending Provider Chief Complaint and Reason for Visit Chief Complaint Lab POSSIBLE OVERDOSE Reason for Visit Acute confusion Metabolic encephalopathy Allergies, Adverse Reactions, Alerts Allergen Type Severity Reaction Last Updated Verified Status penicillin V Allergy Mild rash July 04, 2021 8:36am Y es Active Social History Smoking Status Status Start Date End Date Date of Observa tion Smokes tobacco daily (finding) July 06, 2021 11:00am Observation Status Observation Response Date of Response Alcohol Use Yes July 06 11:00am alcohol intake frequency 3 or more drinks per da y July 06, 2021 11:00am Substance/Street Drug Use Yes Donna y 2021 11:00am Substance Use Treatment Yes July 03, 2021 9:18pm substance use type marijuana July 03, 2021 9:18pm heroin July 03 9:18pm Smoking Status Current every day smoker July 06, 2021 11:00am Additional Data Assigned Sex Male Family History Relationship Condition Age at Onset Recorded Date/T citlaly Not Specified Bipolar disorder Unknown Not Specified Depression Unknown Problems Active Problems Medical Problem Onset Date Status Metabolic encephalopathy Active Acute confusion Active Medications Medication Status Dose Units Route Directions Qty Days St art Date End Date Instructions Mirtazapine Active 15 MG PO BEDTIME 2021 8:20pm Buprenorphine -Naloxone (Suboxone) 12-3 mg film Active 1 film SL DAILY July 03, 2021 8:20pm Olanzapine Active 5 MG PO DAILY 2021 5:11pm Immunizations Immunization Event Date Not Given Reason Dose Number Marketing Secretary Lot Number Vaccine Information Statement (VIS) Detail Covid-19 100mcg/0.5mL Moderna October 19, 2020 Covid-19 100mcg/0.5mL Moderna January 26, 2021 Procedures Procedure Date Performed Status EKG July 03, 2021 9:07pm comple leo CT Head w/o Contrast July 04, 2021 5:49am c ompleted EKG July 04, 2021 5:29pm comple leo MRI Brain w/wo Contrast July 05, 2021 5:20p m completed Blood Culture July 06, 2021 active Relevant Diagnostic Tests and/or Laboratory Data Laboratory Results Test Date/Time Result Interpretation Reference Range Result Comment Performing Site White Blood Count February 23, 2021 11:15am TNP Test not performedCBCD CANCELLED, LAB UNABLE TO DRAW PATIENT MAIN LAB [address] [address] White Blood Count July 06, 2021 7:38am 7.41 1000/mm3 4.8-10.8 MAIN LAB [address] [address] Red Blood Count February 23, 2021 11:15am TNP Test not performedCBCD CANCELLED, LAB UNABLE TO DRAW PATIENT MAIN LAB [address] [address] Red Blood Count July 06, 2021 7:38am 5.21 M/mm3 4.70-6.00 MAIN LAB [address] [address] Hemoglobin February 23, 2021 11:15am TNP Test not performedCBCD CANCELLED, LAB UNABLE TO DRAW PATIENT MAIN LAB [address] [address] Hemoglobin July 06, 2021 7:38am 15.3 g/dL 14.0-18.0 MAIN LAB [facility] [address] [facility] [address] Hematocrit February 23, 2021 11:15am TNP Test not performedCBCD CANCELLED, LAB UNABLE TO DRAW PATIENT MAIN LAB [facility] [address] [facility] [address] Hematocrit July 06, 2021 7:38am 47.0 % 42-52 MAIN LAB [facility] [address] [facility] [address] Mean Corpuscular Volume February 23, 2021 11:15am TNP Test not performedCBCD CANCELLED, LAB UNABLE TO DRAW PATIENT MAIN LAB [address] [address] Mean Corpuscular Volume July 06, 2021 7:38am 90.2 fL 80.0-94.0 MAIN LAB [address] [address] Mean Corpuscular Hemoglobin February 23, 2021 11:15am TNP Test not performedCBCD CANCELLED, LAB UNABLE TO DRAW PATIENT MAIN LAB [facility] [address] [facility] [address] Mean Corpuscular Hemoglobin July 06, 2021 7:38am 29.4 pg 27-31 MAIN LAB [address] [address] Mean Corpuscular Hemoglobin Concent February 23, 2021 11:15am TNP Test not performedCBCD CANCELLED, LAB UNABLE TO DRAW PATIENT MAIN LAB [address] [address] Mean Corpuscular Hemoglobin Concent July 06, 2021 7:38am 32.6 g/dL 33-37 MAIN LAB [facility] [address] [facility] [address] Red Cell Distribution Width February 23, 2021 11:15am TNP Test not performedCBCD CANCELLED, LAB UNABLE TO DRAW PATIENT MAIN LAB [facility] [address] [facility] [address] Red Cell Distribution Width July 06, 2021 7:38am 12.3 % 11.5-14.5 MAIN LAB [facility] [address] [facility] [address] Platelet Count February 23, 2021 11:15am TNP Test not performedCBCD CANCELLED, LAB UNABLE TO DRAW PATIENT MAIN LAB [address] [address] Platelet Count July 06, 2021 7:38am 203 1000/mm3 140-440 MAIN LAB [address] [address] Mean Platelet Volume February 23, 2021 11:15am TNP Test not performedCBCD CANCELLED, LAB UNABLE TO DRAW PATIENT MAIN LAB [address] [address] Mean Platelet Volume July 06, 2021 7:38am 10.7 fL 7.4-10.4 MAIN LAB [address] [address] Neutrophils (%) (Auto) February 23, 2021 11:15am TNP Test not performedCBCD CANCELLED, LAB UNABLE TO DRAW PATIENT MAIN LAB [address] [address] Neutrophils (%) (Auto) July 03, 2021 9:19pm 74.9 % 40.0-72.0 MAIN LAB [address] [address] Lymphocytes (%) (Auto) February 23, 2021 11:15am TNP Test not performedCBCD CANCELLED, LAB UNABLE TO DRAW PATIENT MAIN LAB [address] [place] [address] Lymphocytes (%) (Auto) July 03, 2021 9:19pm 17.4 % 17-45 MAIN LAB [address] [place] [address] Monocytes (%) (Auto) February 23, 2021 11:15am TNP Test not performedCBCD CANCELLED, LAB UNABLE TO DRAW PATIENT MAIN LAB [address] [place] [address] Monocytes (%) (Auto) July 03, 2021 9:19pm 6.3 % 3-11 MAIN LAB [address] [place] [address] Eosinophils (%) (Auto) February 23, 2021 11:15am TNP Test not performedCBCD CANCELLED, LAB UNABLE TO DRAW PATIENT MAIN LAB [address] [place] [address] Eosinophils (%) (Auto) July 03, 2021 9:19pm 0.3 % 0-3 MAIN LAB [address] [place] [address] Basophils (%) (Auto) February 23, 2021 11:15am TNP Test not performedCBCD CANCELLED, LAB UNABLE TO DRAW PATIENT MAIN LAB [address] [address] Basophils (%) (Auto) July 03, 2021 9:19pm 0.5 % 0-1 MAIN LAB [address] [address] Immature Granulocyte % (Auto) February 23, 2021 11:15am TNP Test not performedCBCD CANCELLED, LAB UNABLE TO DRAW PATIENT MAIN LAB [address] [address] Immature Granulocyte % (Auto) July 03, 2021 9:19pm 0.6 % 0-1 MAIN LAB [address] [address] Nucleated Red Blood Cells % (auto) February 23, 2021 11:15am TNP Test not performedCBCD CANCELLED, LAB UNABLE TO DRAW PATIENT MAIN LAB [address] [address] Neutrophils # (Auto) February 23, 2021 11:15am TNP Test not performedCBCD CANCELLED, LAB UNABLE TO DRAW PATIENT MAIN LAB [address] [address] Neutrophils # (Auto) July 03, 2021 9:19pm 11.48 1000/mm3 1.4-6.5 MAIN LAB [address] [address] Lymphocytes # (Auto) February 23, 2021 11:15am TNP Test not performedCBCD CANCELLED, LAB UNABLE TO DRAW PATIENT MAIN LAB [address] [address] Lymphocytes # (Auto) July 03, 2021 9:19pm 2.66 1000/mm3 1.2-3.4 MAIN LAB [address] [address] Monocytes # (Auto) February 23, 2021 11:15am TNP Test not performedCBCD CANCELLED, LAB UNABLE TO DRAW PATIENT MAIN LAB [address] [address] Monocytes # (Auto) July 03, 2021 9:19pm 0.96 1000/mm3 0.0-0.8 MAIN LAB [address] [address] Eosinophils # (Auto) February 23, 2021 11:15am TNP Test not performedCBCD CANCELLED, LAB UNABLE TO DRAW PATIENT MAIN LAB [address] [address] Eosinophils # (Auto) July 03, 2021 9:19pm 0.04 1000/mm3 0.0-0.7 MAIN LAB [address] [address] Basophils # (Auto) February 23, 2021 11:15am TNP Test not performedCBCD CANCELLED, LAB UNABLE TO DRAW PATIENT MAIN LAB [address] [address] Basophils # (Auto) July 03, 2021 9:19pm 0.07 1000/mm3 0.0-0.1 MAIN LAB [address] [address] Absolute Immature Granulocyte (auto February 23, 2021 11:15am TNP Test not performedCBCD CANCELLED, LAB UNABLE TO DRAW PATIENT MAIN LAB [address] [address] Absolute Immature Granulocyte (auto July 03, 2021 9:19pm 0.1 0-1 MAIN LAB [address] [address] Nucleated RBC Absolute Count (auto) February 23, 2021 11:15am TNP Test not performedCBCD CANCELLED, LAB UNABLE TO DRAW PATIENT MAIN LAB [address] [address] Differential Method February 23, 2021 11:15am Automated MAIN LAB [address] [address] Differential Method July 03, 2021 9:19pm Automated MAIN LAB [address] [address] Erythrocyte Sedimentatio n Rate July 05, 2021 11:48am 5 mm/hr 0-20 MAIN LAB [address] [address] Sodium Level February 23, 2021 11:15am TNP Test not performedUNABLE TO OBTAIN MAIN LAB [address] [address] Sodium Level July 06, 2021 7:38am 140 mmol/L 137-145 MAIN LAB [address] [address] Potassium Level February 23, 2021 11:15am TNP Test not performedUNABLE TO OBTAIN MAIN LAB [address] [address] Potassium Level July 06, 2021 7:38am 4.4 mmol/L 3.6-5.0 MAIN LAB [address] [address] Chloride Level February 23, 2021 11:15am TNP Test not performedUNABLE TO OBTAIN MAIN LAB [address] [address] Chloride Level July 06, 2021 7:38am 106 mmol/L 98-107 MAIN LAB [address] [address] Carbon Dioxide Level February 23, 2021 11:15am TNP Test not performedUNABLE TO OBTAIN MAIN LAB [address] [address] Carbon Dioxide Level July 06, 2021 7:38am 27 mmol/L 22-30 MAIN LAB [address] [address] Anion Gap February 23, 2021 11:15am TNP Test not performedUNABLE TO OBTAIN MAIN LAB [address] [address] Anion Gap July 06, 2021 7:38am 7 7-16 MAIN LAB [address] [address] Blood Urea Nitrogen February 23, 2021 11:15am TNP Test not performedUNABLE TO OBTAIN MAIN LAB [address] [address] Blood Urea Nitrogen July 06, 2021 7:38am 10 mg/dL 8-26 MAIN LAB [address] [address] Creatinine February 23, 2021 11:15am TNP Test not performedUNABLE TO OBTAIN MAIN LAB [address] [address] Creatinine July 06, 2021 7:38am 0.55 mg/dL 0.66-1.25 MAIN LAB [address] [address] Glomerular Filtration Rate Calc February 23, 2021 11:15am TNP Test not performedUNABLE TO OBTAIN MAIN LAB [address] [address] Glomerular Filtration Rate Calc July 06, 2021 7:38am > 60 mL/min >60.0 MAIN LAB [address] [address] Glucose Level February 23, 2021 11:15am TNP Test not performedUNABLE TO OBTAIN MAIN LAB [address] [address] Glucose Level July 06, 2021 7:38am 105 mg/dL 70-100 MAIN LAB [address] [address] Calcium Level February 23, 2021 11:15am TNP Test not performedUNABLE TO OBTAIN MAIN LAB [address] [address] Calcium Level July 06, 2021 7:38am 9.0 mg/dL 8.4-10.2 MAIN LAB [address] [address] Calcium Adjusted for Albumin February 23, 2021 11:15am TNP Test not performedUNABLE TO OBTAIN MAIN LAB [address] [address] Calcium Adjusted for Albumin July 04, 2021 6:52am 9.5 mg/dL 8.4-10.2 MAIN LAB [address] [address] Magnesium Level July 04, 2021 11:50am 2.1 mg/dL 1.6-2.3 MAIN LAB [address] [address] Total Bilirubin February 23, 2021 11:15am TNP Test not performedUNABLE TO OBTAIN MAIN LAB [address] [address] Total Bilirubin July 04, 2021 6:52am 1.2 mg/dL 0.2-1.3 MAIN LAB [address] [address] Gamma Glutamyl Transpeptida se February 23, 2021 11:15am TNP Test not performedUNABLE TO OBTAIN MAIN LAB [address] [address] Aspartate Amino Transf (AST/SGOT) February 23, 2021 11:15am TNP Test not performedUNABLE TO OBTAIN MAIN LAB [address] [address] Aspartate Amino Transf (AST/SGOT) July 04, 2021 6:52am 63 U/L 17-59 MAIN LAB [address] [address] Alanine Aminotransfe rase (ALT/SGPT) February 23, 2021 11:15am TNP Test not performedUNABLE TO OBTAIN MAIN LAB [address] [address] Alanine Aminotransfe rase (ALT/SGPT) July 04, 2021 6:52am 67 U/L <50 As of 10/17/19, the Reference Range for ALT/SGPT for adult patients has been updated. The Reference Range for ALT/SGPT has not been established for patients <18 years of age. MAIN LAB [address] [address] Troponin I July 03, 2021 9:19pm < 0.012 ng/mL 0-0.034 Reference Range: <0.034 ng/mL AMI Cut-off 0.120 ng/mLThe results of this assay can be falsely decreased in patients who consume Biotin. MAIN LAB [address] [address] Total Protein February 23, 2021 11:15am TNP Test not performedUNABLE TO OBTAIN MAIN LAB [address] [address] Total Protein July 04, 2021 6:52am 7.3 g/dL 6.3-8.2 MAIN LAB [address] [address] Albumin February 23, 2021 11:15am TNP Test not performedUNABLE TO OBTAIN MAIN LAB [address] [address] Albumin July 04, 2021 6:52am 4.3 g/dL 3.5-5.0 MAIN LAB [address] [address] Alkaline Phosphatase February 23, 2021 11:15am TNP Test not performedUNABLE TO OBTAIN MAIN LAB [address] [address] Alkaline Phosphatase July 04, 2021 6:52am 77 U/L 38-126 MAIN LAB [address] [address] C-Reactive Protein July 05, 2021 11:48am < 5.0 mg/L 5-10 MAIN LAB [address] [address] SARS-CoV-2 RNA (RT-PCR) July 04, 2021 6:02am Negative Negative Note: This RT-PCR assay is intended for the in vitro qualitative detection of nucleic acid from SARS-CoV-2.This test has not been FDA cleared or approved. This test has been authorized by the FDA under an Emergency Use Authorization (EUA) for use by authorized laboratories. Fact sheets for providers can be found at: [employer]se.[employer]/[place]/ 88602/downloadF act sheets for patients can be found at: SocialBrowse.gov/[place]/ 29239/downloadN ew reagent in use as of 05/05/2021. MAIN LAB [place] [address] Hepatitis A IgM Antibody February 23, 2021 11:15am TNP Test not performedUNABLE TO OBTAIN [facility] Hepatitis B Surface Antigen February 23, 2021 11:15am TNP Test not performedUNABLE TO OBTAIN [facility] Hepatitis B Surface Antibody February 23, 2021 11:15am TNP Test [...] Test not performedUNABLE TO OBTAIN MAIN LAB [place] [address] Hepatitis C Antibody Comment February 23, 2021 11:15am TNP Test not performedUNABLE TO OBTAIN [facility] LAB [place] [address] HCV RNA Qnt (PCR) w/Genotype Reflex February 23, 2021 11:15am TNP Test not performedUNABLE TO OBTAIN [facility] Hepatitis A IgG Antibody February 23, 2021 11:15am TNP Test not performedUNABLE TO OBTAIN [facility] Urine Methadone Screen July 04, 2021 5:56am Negative ng/mL Cutoff:200 MAIN LAB [place] [address] Diagnostic Imaging Reports Report Dictated Date/Time Dictated By Status Electrocardiogram July 03, 2021 8:32pm Richie King MD completed [facility] EKG PATIENT NAME: FRANDY SMITH MRN: [id number] DATE OF : 1990 ATTENDING PHYSICIAN: PRIMARY [...] Referred By: Richie King Confirmed By:Richie King 07/03/212149 Report Dictated Date/Time Dictated By Status Radiology Report July 04, 2021 6:57am Rachel alexandra MD completed [facility] CAT SCAN REPORT PATIENT [...] Signed By : Rachel Moreira MD dd: 07/04/21 0657 07/04/2157 Report Dictated Date/Time Dictated By Status Radiology Report July 05, 2021 10:03pm Cornel Ruth MD completed [facility] MRI REPORT PATIENT NAME: FRANDY SMITH [id number] DATE OF : 1990 ATTENDING/ER PHYSICIAN: Brent Brantley MD ER/ATTENDING PHYSICIAN: Rene Kat MD PRIMARY CARE PHYS: No Pcp ADMITTING PHYSICIAN: Brent Brantley MD CONSULTING PHYSICIAN: PROCEDURE DATE: 07/05/21 REPORT STATUS: Signed DICTATING PHYSICIAN: Cornel Ruth MD REASON FOR EXAM: hx endocarditis, acute delusions, r/o infarct/infe PROCEDURE INFORMATION: Exam: MR Head Without and With Contrast Exam date and time: 07/05/2021 8:47 PM Age: 30 years old Clinical indication: Altered mental status/memory loss; Confusion or disorientation; Patient HX: Confusion, delusions, HX endocarditis, assess for infarct vs infection, no known injury; Additional info: HX endocarditis, acute delusions, R/O infarct/infe TECHNIQUE: Imaging protocol: MR of the head without and with intravenous contrast. Contrast material: PROHANCE; Contrast volume: 17 ml; Contrast route: INTRAVENOUS (IV); COMPARISON: CT Head w/o Contrast 07/04/2021 6:06 AM FINDINGS: Brain: Cerebral sulci show bilateral symmetry with no supratentorial mass or mass effect detected. Brainstem and cerebellum are normal in appearance. No foci of abnormal increased or decreased signal intensity are seen within the brain parenchyma and there is no evidence of acute infarct or recent intracranial hemorrhage. No abnormal intracranial enhancement is detected on postcontrast sequences. Cerebral ventricles: Ventricles are normal in size and configuration with no evidence of midline shift or hydrocephalus. Bones/joints: Bony calvarium and skull base appear intact with no acute osseous lesions detected. Paranasal sinuses: Scattered mucosal disease involves the maxilloethmoidal sinuses bilaterally. Mastoid air cells: Clear as visualized. Orbital cavity: Unremarkable. Soft tissues: Unremarkable. IMPRESSION: Unremarkable enhanced MRI of the brain with no acute intracranial process detected. Electronically Signed By : Cornel Ruth MD dd: [id number] Report Dictated Date/Time Dictated By Status Electrocardiogram July 04, 2021 6:47pm Angie Magana MD completed [facility] EKG PATIENT NAME: FRANDY SMITH MRN: [id number] DATE OF : 1990 ATTENDING PHYSICIAN: Brent Brantley MD PRIMARY CARE PHYS: No Pcp DICTATING PHYSICIAN: Angie Magana MD REPORT STATUS: Signed Test Reason : overdose Blood Pressure : / mmHG Vent. Rate : 097 BPM Atrial Rate : 097 BPM P-R Int : 122 ms QRS Dur : 102 ms QT Int : 356 ms P-R-T Axes : 074 064 047 degrees QTc Int : 452 ms Normal sinus rhythm Incomplete right bundle branch block Borderline ECG Confirmed by Angie Magana ([id number]) on 07/06/2021 2:59:25 AM Referred By: Brent Brantley Confirmed By:Anige Magana 07/06/21 0259 Vital Signs Vital Reading Result Reference Range Collection Date/Time Height 76 [in_i] July 04, 10:30am Weight 93.00 kg July 04 10:30am Body Temperature 98.4 [degF] 97.6-99.6 June 2:00pm Heart Rate 85 /min 60-100 July 06 4:00pm Respiratory rate 18 /min 12-24 June 2:00pm Oxygen saturation by Pulse oximetry 97 % 95-100 July 06, 2021 2 :00pm BP Systolic 103 mm[Hg] 100-140 July 06, 2 022 2:00pm BP Diastolic 55 mm[Hg] 50-85 July 06, 2 022 2:00pm BMI (Body Mass Index) 24.9 kg/m2 Januar y 2021 10:30am Advance Directives Advance Directive Response Recorded Date/ Time Does patient have an Advanced Directive? No February 23, 2021 11:06am Do we have a copy [place] file here [place] [facility] No February 23, 2021 11:06am Pt has a Living Will? No February 23, 2021 11:06am Do we have a copy on file here at [facility]? No February 23, 2021 11:06am Pt has a Power of Unemployment Inspector? No Feb 11:06am Do we have a copy on file here at [facility]? No February 23, 2021 11:06am Insurance Providers Guarantor FRANDY SMITH Address [address] [place] [address] Contact Info. Home Phone: Payer Policy Id Coverage Id Subscriber's Name Subscriber Id Effective Date Expiration Date [place] [id number] FRANDY SMITH [id number] SELF PAY Self N/A Encounters Encounter Location(s) Arrival/Admit Date Discharge /Depart Date Provider(s) Departed Clinical [facility] February 23, 2021 11:06am February 23, 2021 11:07am LISHA Millan Discharged Inpatient [facility] e Care Unit July 04, 2021 10:46am July 06, 2021 4:30pm Brent Brantley MD Recent Diagnosis Onset Date Acute confusion Metabolic encephalopathy Functional Status Observation Response Date Recorded Ambulation Ability Independent July 06, 2021 11:00am Living Situation Home July 06 11:00am With Family July 06 11:00am Mental Status Observation Response Date Recorded Comprehension Ability Understands Concepts Janua ry 2021 8:00am Speech Appropriate July 06 8:00am Clear July 06 8:00am Mood/Behavior Appropriate July 06 8:00am Assessments Diagnosis Onset Date Resolution Status Acute confusion acute Metabolic encephalopathy acu te Plan of Treatment Future Tests Future scheduled test information is unavailable Pending Tests Test Name Date ordered Blood Culture July 06, 2021 7 :38am Blood Culture July 06, 2021 1 :25pm Future Visits Future appointment information is unavailable Referrals to Other Providers Referral information is unavailable Future Procedures Future procedure information is unavailable Future Medications Future medication information is unavailable Patient Instructions Patient instructions are unavailable
[2023-12-05 13:59] LABS: INR 1.1 (0.9-1.1); PTT Activated 27.5 sec (23.6-32.8); Prothrombin Time 11.2 sec (9.1-11.1)
[2023-12-05] MEDS: VANCOMYCIN/WATER (PEG) 2 GM/400 ML BAG IVPB (14:40)
[2023-12-05 14:53] VITALS: BP 116/89; PULSE 78; TEMP 36.4; O2SAT 97
--- NOTE | 2023-12-05 16:02 | W.EDPROG ---
Date of service: 12/05/23 Time of Service: 16:02 Medical Decision Making 1602: Care assumed from provider (LISHA Pollack) Please see their initial HPI, PE, and documentation. Discussed patient details and case and pending workup and disposition. Patient is hemodynamically stable, and alert and oriented. In short patient is a 32-year-old male with history of IV drug abuse with left antecubital cellulitis which extends up to his medial proximal biceps, he is unable to fully extend his left elbow, he also has a 2 to 3 cm thrombus in the cephalic vein, the more superior cephalic vein is not visualized on the ultrasound exam due to soft tissue swelling. At the time of signout awaiting [facility] [place] regarding anticoagulation versus conservative treatment with NSAIDs and compression. Patient is receiving cefazolin and vancomycin IV piggyback. Transfer center called, they will re-page Vascular. 1633: Hospitalist paged to discuss case and recommendation for admission for IV antibiotics and further treatment, patient is a homeless individual speaking with community connections at this time, there is a risk for loss to follow up, Patient unable to fully extend elbow has approx 15 degrees of movement, distal pulses intact. 1654: Spoke with Dr. Goldman, hospitalist who is willing to accept for admission pending Vascular consult and recommendations. 1733:Spoke with Dr. Nazario with [facility], she recommends treating as a superficial thrombophlebitis, She does recommend repeat US to re-assess absence of progression to deeper venous system in near future. No further recommendations. Spoke again with Dr. Goldman who agrees to accept patient for admission I did discuss plan of care with patient who verbalized understanding is in agreement with plan. Patient informed of plan of care is in agreement with plan, transported up to floor in hemodynamically stable condition. This text was generated using Luristication system, please disregard any oddities of phrase or misspellings. Imaging Data Radiologic Study: Imaging: Ultrasound Radiologist's impression: US UPPER EXTREMITY VENOUS LT EXAM: US UPPER EXTREMITY VENOUS LT CLINICAL HISTORY: L unilateral arm swelling. TECHNIQUE: Ultrasound examination of the left upper extremity venous system(s) is performed using grayscale, color-flow, and spectral Doppler analysis. COMPARISON: No exams were available for comparison FINDINGS: Evaluation of the veins limited due to extensive swelling of the upper arm. The left internal jugular, axillary, subclavian, basilic, and brachial veins are patent without evidence of thrombosis. There is compression of the cephalic vein. Thrombus is visible in the cephalic vein in the upper forearm, antecubital fossa region over a length of 2-3 cm. IMPRESSION: Thrombus in the cephalic vein in the antecubital fossa. The more superior cephalic vein is not visualized, compressed by a marked soft tissue swelling. The remaining vessels are free of thrombus. Lab Data Lab results reviewed: Yes I reviewed the patient's lab results. Labs: 12/05/23 13:36 Blood Blood Culture - Pending 12/05/23 11:55 Blood Blood Culture - Pending Laboratory Tests Range/Units 12/05/23 12/05/23 11:55 13:36 WBC (4.4-10.8) 10^3/uL 12.97 H RBC (4.36-5.78) 10^6/uL 4.80 Hgb (13.5-17.5) g/dL 13.7 Hct (40.0-50.0) % 41.7 MCV (80-95) fL 87 MCH (27.0-33.0) pg 28.5 MCHC (32.0-36.0) % 32.9 RDW (11.8-14.1) % 12.0 Plt Count (130-400) 10^3/uL 349 MPV (8.0-11.0) fL 10.4 Immature Gran % % 0.5 Neutrophils % % 76.4 Lymphocytes % % 15.0 Monocytes % % 6.9 Eosinophils % % 0.8 Basophils % % 0.4 Nucleated RBC % (0.0-0.3) % 0.0 Absolute Neutrophils (1.2-6.7) 10^3/uL 9.91 H Absolute Lymphocytes (1.2-3.4) 10^3/uL 1.95 Absolute Monocytes (0.1-0.8) 10^3/uL 0.89 H Absolute Eosinophils (0.0-0.7) 10^3/uL 0.10 Absolute Basophils (0.0-0.2) 10^3/uL 0.05 PT (9.1-11.1) sec 11.2 H INR (0.9-1.1) 1.1 APTT (23.6-32.8) sec 27.5 VBG Lactate (0.6-1.4) mmol/L 1.2 Sodium (136-145) mmol/L 142 Potassium (3.5-5.1) mmol/L 3.6 Chloride (98-107) mmol/L 103 Carbon Dioxide (21.0-32.0) mmol/L 32.4 H Anion Gap (3-11) mmol/L 6.6 BUN (7-18) mg/dL 10 Creatinine (0.70-1.30) mg/dL 0.7 Est GFR (CKD-EPI 2020) (mL/min/1.73m2) 124.00 Glucose (74-106) mg/dL 114 H Calcium (8.5-10.1) mg/dL 9.3 Total Bilirubin (0.2-1.0) mg/dL 0.5 AST (15-37) U/L 24 ALT (16-63) U/L 41 Alkaline Phosphatase (46-116) U/L 87 C-Reactive Protein (<or=0.5) mg/dL 15.52 H Total Protein (6.4-8.2) g/dL 8.1 Albumin (3.4-5.0) g/dL 3.0 L Procalcitonin ng/mL < 0.1 Quality:SDOH Health Related Social Needs: Health related social needs inadequate housing, risk of homeless, material hardship Exam Extrem Left upper extremity: elbow/forearm Details: abnormal to inspection, tenderness, swelling, abnormal ROM and warmth Shoulder/upper arm images: 1. Erythema, extremity is kept in a flexed position and is unable to extend fully. 2. Central puncture wound noted with some drainage Sign Out Sign Out Data: Sign Out Comment: Patient has likely high risk SVT of L UE from IVDU, with near circumferential cellulitis. Received IV cefazolin and vancomycin. Rx'd PO cephalexin and doxy for cellulitis. Pending [facility] consult for DOAC vs NSAID treatment. Last updated by Nahun Albarran PA at 12/05/23 15:31 Discharge Plan Disposition Patient Disposition: Admit to [facility] Condition: Stable Discharge Details Clinical Impression: Cellulitis of left upper extremity, Acute cephalic vein thrombosis Admit Date/Time: 12/05/23 17:51 Admit Provider: Rogelio Goldman Attending Provider: Rogelio Goldman Primary Care Provider: KEVIN HUBER ED Provider: Venus Dunlap
--- NOTE | 2023-12-05 17:51 | HPE_ITS ---
Date of service: 12/05/23 Time of Service: 17:51 Assessment and Plan Assessment and plan (1) Acute cephalic vein thrombosis: Status: Acute Assessment and plan: - As seen on ultrasound performed in the emergency department -Also with associated cellulitis of the left upper extremity, again imaging did not show drainable abscess though patient is having some discharge -Likely secondary to IV drug use -[facility] [place] was consulted and they recommended treating patient for superficial thrombophlebitis -Will elevate and do warm compresses on the area in addition to treating cellulitis -Recommend left upper extremity ultrasound follow-up in 2 to 3 weeks (2) Cellulitis of left upper extremity: Status: Acute History of Present Illness History of Present Illness Chief Complaint: drainage, abscess, redness, swelling of LUE Narrative: 32-year-old with a past medical history of IV drug use presents to the emergency department with complaints of draining, red swelling and painful left upper extremity. Patient states has been going on for about 3 days and that he had recently injected IV drugs into the area. Since that time has been draining purulent material with associated diffuse swelling of the left arm. Denies any fevers, chills, nausea, vomiting, lightheaded nests or dizziness. In the emergency department patient was noted as having normal vital signs, CBC with a white blood cell count of 12.97 with the remainder of his CBC and CMP within normal limits. Physical exam showed normal range of motion of the left upper extremity, but diffuse swelling of left upper extremity with very small area what appeared to be a draining abscess in the left antecubital fossa with significant erythema and swelling to the distal bicep. This prompted an initial upper extremity ultrasound which showed marked soft tissue swelling without evidence of drainable abscess or fluid collecti subsequently, on. Ultrasound of the left upper extremity veins showed a thrombus in the cephalic vein in the antecubital fossa the more superior cephalic vein is not visualized compressed by marked soft tissue swelling without thrombus in the remaining vessels. Patient was given ceftriaxone and vancomycin and emergency room PA discussed case with [facility] surgery who recommended treating patient for superficial thrombophlebitis with 2 to 3-week outpatient ultrasound follow-up to ensure there has not been progression to DVT. At which time emergency room PA paged hospitalist for admission for patient with left upper extremity cellulitis and thrombophlebitis. Review of Systems All systems reviewed & are unremarkable except as noted in HPI and below PFSH All Active Problems (Updated 12/05/23 @ 17:44 by Venus Dunlap NP) Acute cephalic vein thrombosis (Acute) Cellulitis of left upper extremity (Acute) Social History Smoking/Tobacco Use Status: Current every day Tobacco Type: cigarettes Smoking risk assessment performed?: Yes Alcohol Intake: current Alcohol Intake frequency: 0-2 drinks per day Alcohol type: beer Drug use: Current Sobriety Substance use type: heroin, opiates, IV drugs and methamphetamine Housing: homeless Do you feel safe at home: No Do you feel safe in your relationship?: Yes Meds Allergies and Home Medications Allergies Allergy/AdvReac Type Severity Reaction Status Date / Time No Known Allergies Allergy Unverified 12/05/23 11:03 Home Medications Medication Instructions Recorded Confirmed Type lisdexamfetamine 30 mg capsule 60 mg PO DAILY 01/18/22 12/05/23 History (Vvirginiee) methadone 10 mg/5 mL oral solution 150 mg PO DAILY 01/01/23 12/05/23 History paroxetine HCl 30 mg tablet 30 mg PO DAILY 01/01/23 12/05/23 History cephalexin 500 mg capsule 500 mg PO QID cellulitis 14 days 12/05/23 Rx #56 caps doxycycline hyclate 100 mg capsule 100 mg PO BID 14 days #28 caps 12/05/23 Rx Exam Narrative Exam Narrative: Disheveled appearing gentleman laying in bed in no acute distress, ANO x 4, heart regular rhythm, lungs clear to auscultation bilaterally, abdomen soft, nontender, nondistended, left upper extremity with significant circumferential erythema of the left antecubital fossa with nonpurulent drainage, normal sensation and strength in left upper extremity Results Labs 12/05/23 11:55 12/05/23 11:55 Labs: Laboratory Results - last 24 hr 12/05/23 12/05/23 11:55 13:36 WBC 12.97 H RBC 4.80 Hgb 13.7 Hct 41.7 MCV 87 MCH 28.5 MCHC 32.9 RDW 12.0 Plt Count 349 MPV 10.4 Immature Gran % 0.5 Neutrophils % 76.4 Lymphocytes % 15.0 Monocytes % 6.9 Eosinophils % 0.8 Basophils % 0.4 Nucleated RBC % 0.0 Absolute Neutrophils 9.91 H Absolute Lymphocytes 1.95 Absolute Monocytes 0.89 H Absolute Eosinophils 0.10 Absolute Basophils 0.05 PT 11.2 H INR 1.1 APTT 27.5 VBG Lactate 1.2 Sodium 142 Potassium 3.6 Chloride 103 Carbon Dioxide 32.4 H Anion Gap 6.6 BUN 10 Creatinine 0.7 Est GFR (CKD-EPI 2020) 124.00 Glucose 114 H Calcium 9.3 Total Bilirubin 0.5 AST 24 ALT 41 Alkaline Phosphatase 87 C-Reactive Protein 15.52 H Total Protein 8.1 Albumin 3.0 L Procalcitonin < 0.1 Last Vital Signs Temp 97.6 F 12/05/23 14:53 Pulse 78 12/05/23 14:53 Resp 14 12/05/23 10:57 BP 116/89 12/05/23 14:53 Pulse Ox 97 12/05/23 14:53 PAWSS Have you Been Recently Intoxicated or Drunk Within the Last 30 days?: No Have you Ever Experienced Previous Episodes of Alcohol Withdrawal?: No Have you ever Experienced Withdrawal Seizures?: No Have you ever Experienced Delirium Tremens(DT)s?: No Have you ever undergone Alcohol Rehabilitation Treatment (i.e, inpt ot outpatient treatment programs)?: No Have you ever Experienced Blackouts?: No Have you ever Combined Alcohol with other Downers within the last 90 days?: No Have you ever Combined Alcohol with any other Substance of Abuse during the last 90 days?: No Positive Blood Alcohol level on Presentation? [PCS.BAL]: No Evidence of Increased Autonomic Activity (i.e. HR>120, tremor, sweating, agitation, nausea)?: No Result: 0 Time Spent Time spent with Patient: >75 minutes Time was spent: preparing to see the patient(eg.review tests), obtaining and/or reviewing separately otained hiistory, ordering medications,tests, procedures, referring, communicating with other health senior resident care director, indepentently interpreting results, counseling the patient and care coordination
[2023-12-05 18:18] VITALS: BP 118/80; PULSE 78; RESP 12; TEMP 36.6; O2SAT 100
[2023-12-05] MEDS: Normal Saline Flush 10 ML SYR IVP (19:44)
[2023-12-05 20:30] VITALS: BP 119/72; PULSE 64; RESP 18; TEMP 35.9; O2SAT 95
[2023-12-05 22:01] VITALS: BP 110/65; PULSE 66; RESP 16; TEMP 36.4; O2SAT 96
[2023-12-05] MEDS: Nicotine 2 MG GUM CH (23:02)
[2023-12-06] MEDS: VANCOMYCIN 1,500 MG in Normal Saline 250 ML 166.667 MG IVPB (01:57)
[2023-12-06 01:58] VITALS: BP 117/76; PULSE 70; RESP 18; TEMP 36.4; O2SAT 96
[2023-12-06 07:27] VITALS: BP 117/70; PULSE 67; RESP 16; TEMP 36.7; O2SAT 97
[2023-12-06] MEDS: cefTRIAXone 1 GM/50 ML BAG IVPB (08:50)
[2023-12-06] MEDS: Methadone Liquid 10 MG/ML 150 MG PO (08:50)
[2023-12-06] MEDS: Normal Saline Flush 10 ML SYR IVP (08:50)
[2023-12-06 09:01] LABS: HCT 40.2 % (40.0-50.0); MCH 28.7 pg (27.0-33.0); MCHC 32.3 % (32.0-36.0); MCV 89 fL (80-95); MPV 9.9 fL (8.0-11.0); Platelet Count 305 10^3/uL (130-400); RBC 4.53 10^6/uL (4.36-5.78); RDW 11.9 % (11.8-14.1); RDW-SD 38.4 fL; WBC 9.05 10^3/uL (4.4-10.8)
[2023-12-06 09:21] LABS: Vancomycin, Random 14.2 ug/mL
[2023-12-06 09:37] LABS: Anion Gap 3.6 mmol/L (3-11); BUN 8 mg/dL (7-18); CO2 33.4 mmol/L (21.0-32.0); CREATININE 0.8 mg/dL (0.70-1.30); Calcium 9.1 mg/dL (8.5-10.1); Chloride 104 mmol/L (98-107); Glucose 111 mg/dL (74-106); Potassium 3.8 mmol/L (3.5-5.1); Sodium 141 mmol/L (136-145)
--- NOTE | 2023-12-06 09:45 | W.PM.DS.N ---
Date of service: 12/06/23 Time of Service: 09:45 DS: Diagnosis Discharge Diagnosis (1) Acute cephalic vein thrombosis: Status: Acute Asessment and Plan: - As seen on ultrasound performed in the emergency department -Also with associated cellulitis of the left upper extremity, again imaging did not show drainable abscess though patient is having some discharge -Likely secondary to IV drug use -[facility] [place] was consulted and they recommended treating patient for superficial thrombophlebitis -recommend warm compresses and keeping arm raised as often as possible -had been on vanc and CTX during hospitalization, transitioning to PO amoxacillin and doxycycline to complete 14 day course of outpatient antibiotics -Order sent for upper extremity ultrasound follow-up in 2 to 3 weeks (2) Cellulitis of left upper extremity: Status: Acute Discharge Plan Disposition Patient Disposition: Home Condition: Good Discharge Details Reason For Visit: LUE cellulitis and thrombophlebitis Admit Date/Time: 12/05/23 17:51 Admit Provider: Rogelio Goldman Attending Provider: Rogelio Goldman Primary Care Provider: KEVIN HUBER Hospital Course Hospital Course: Patient initially presented to the hospital with left upper extremity swelling and erythema and nonpurulent drainage of the left antecubital area where he recently injected IV drugs. Ultimately he was found to have cellulitis and superficial thrombophlebitis on ultrasound. [facility] surgery was consulted and recommended treating patient for the superficial thrombophlebitis with keeping the area raised and warm compresses as well as recommending a outpatient ultrasound in 2 to 3 weeks to make sure it does not progress to progress to a DVT. As far as cellulitis, show patient was initially treated with ceftriaxone and vancomycin in the emergency department which was continued during hospitalization, but he is being discharged with a course of amoxicillin and and doxycycline to complete a 14-day course. Home Meds and New Rx's Prescriptions: New doxycycline hyclate 100 mg Capsule 100 mg PO BID Qty: 24 0RF amoxicillin 875 mg Tablet 875 mg PO BID Qty: 24 0RF Continued lisdexamfetamine [Vyvanse] 30 mg Capsule 60 mg PO DAILY paroxetine HCl 30 mg Tablet 30 mg PO DAILY methadone 10 mg/5 mL Solution 150 mg PO DAILY Discharge Instructions Instructions: Cephalexin, Doxycycline, Superficial vein phlebitis and thrombosis, Cellulitis (Skin Infection), Adult ED Stand Alone Forms: Nursing Discharge Form Referrals: KEVIN HUBER [employer] [Primary Care Provider] - 12/26/23 2:00 pm Activity:: Activity as Tolerated Equipment/Supplies:: No Equipment Needed Diet:: As Tolerated Discharge Orders Discharge Orders: Discharge Order (Routine); Ordered 12/06/23 Ordered By: Rogelio Goldman Other Ambulatory Orders: US extremity venous BI (Routine) Timeframe: 3 Weeks Location: None Selected Ordered By: Rogelio Goldman DS: Summary Time Spent with Patient providing and/or coordinating discharge services: Greater than 30 minutes Status at Discharge Functional status at discharge: independent ambulation Overall status at discharge: patient is back to baseline Mental Status: mental status grossly normal Speech and Movement: speech and movement normal Mood: congruent mood Affect: normal affect Quality:SDOH Health Related Social Needs: Health related social needs inadequate housing, risk of homeless, material hardship Exam Narrative Exam Narrative: Disheveled appearing gentleman laying in bed in no acute distress, ANO x 4, heart regular rhythm, lungs clear to auscultation bilaterally, abdomen soft, nontender, nondistended, left upper extremity with onging swelling though significant improvement in erythema and cessation of non-purulent drainage, normal sensation and strength in left upper extremity Psych Mental Status: mental status grossly normal Speech and Movement: speech and movement normal Mood: congruent mood Affect: normal affect DS: Data Vitals/I&O Vitals and I&O: Vital Signs Temperature 98.1 F 12/06/23 07:27 Temperature Source Temporal Artery Scan 12/06/23 07:27 Pulse 67 12/06/23 07:27 Pulse Rhythm Regular 12/05/23 18:18 Respiratory Rate 16 12/06/23 07:27 Respiratory Effort Normal 12/06/23 00:59 Respiratory Depth Normal 12/06/23 00:59 Respiratory Pattern Normal 12/06/23 00:59 Blood Pressure 117/70 12/06/23 07:27 Blood Pressure Position Sitting 12/05/23 10:57 Pulse Oximetry 97 12/06/23 07:27 Oxygen Delivery Method Room Air 12/06/23 07:27 Oxygen Flow Rate 0 12/06/23 07:27 Pain Level 0 12/06/23 07:27 Intake & Output 12/05/23 12/06/23 12/06/23 17:59 05:59 17:59 Intake Total 460 / 460 650 / 1110 Balance 460 / 460 650 / 1110 Weight 220 lb 219 lb 12.814 oz Intake: IV 460 / 460 650 / 1110 Other: Urine Color Yellow Urine Appearance Clear Comment Per patient he voided in then toilet Voiding Methods Toilet Data Completed and Pending Labs on day of discharge: Labs from last 24 hours 12/06/23 12/05/23 12/05/23 08:50 13:36 11:55 WBC 9.05 12.97 H RBC 4.53 4.80 Hgb 13.0 L 13.7 Hct 40.2 41.7 MCV 89 87 MCH 28.7 28.5 MCHC 32.3 32.9 RDW 11.9 12.0 Plt Count 305 349 MPV 9.9 10.4 Immature Gran % 0.5 Neutrophils % 76.4 Lymphocytes % 15.0 Monocytes % 6.9 Eosinophils % 0.8 Basophils % 0.4 Nucleated RBC % 0.0 Absolute Neutrophils 9.91 H Absolute Lymphocytes 1.95 Absolute Monocytes 0.89 H Absolute Eosinophils 0.10 Absolute Basophils 0.05 PT 11.2 H INR 1.1 APTT 27.5 VBG Lactate 1.2 Sodium 141 142 Potassium 3.8 3.6 Chloride 104 103 Carbon Dioxide 33.4 H 32.4 H Anion Gap 3.6 6.6 BUN 8 10 Creatinine 0.8 0.7 Est GFR (CKD-EPI 2020) 119.10 124.00 Glucose 111 H 114 H Calcium 9.1 9.3 Magnesium 2.0 Total Bilirubin 0.5 AST 24 ALT 41 Alkaline Phosphatase 87 C-Reactive Protein 15.52 H Total Protein 8.1 Albumin 3.0 L Procalcitonin < 0.1 Random Vancomycin 14.2 12/05/23 13:36 Blood Blood Culture - Pending 12/05/23 11:55 Blood Blood Culture - Pending Preliminary micro results at discharge 12/05/23 13:36 Blood Culture - Pending Blood 12/05/23 11:55 Blood Culture - Pending Blood PFSH All Active Problems (Updated 12/05/23 @ 17:44 by Venus Dunlap NP) Acute cephalic vein thrombosis (Acute) Cellulitis of left upper extremity (Acute) Social History Smoking/Tobacco Use Status: Current every day Tobacco Type: cigarettes Smoking risk assessment performed?: Yes Alcohol Intake: current Alcohol Intake frequency: 0-2 drinks per day Alcohol type: beer Drug use: Current Sobriety Substance use type: heroin, opiates, IV drugs and methamphetamine Housing: other Do you feel safe at home: No Do you feel safe in your relationship?: Yes Time Spent with Patient Time Spent with Patient: <45 minutes Time was spent: preparing to see the patient(eg.review tests), obtaining and/or reviewing separately otained hiistory, ordering medications,tests, procedures, referring, communicating with other health child care director, indepentently interpreting results, counseling the patient and care coordination
[2023-12-06] MEDS: Amoxicillin 875 MG TAB PO (10:10)
[2023-12-06] MEDS: Doxycycline Hyclate 100 MG CAP PO (10:10)
[2023-12-06] MEDS: Nicotine 2 MG GUM CH (10:20)
== END 2023-12-06 10:21 | disposition home or self-care (01) | DRG 300 ==
LOC: ER 17:44 → MS 18:15
PROVIDERS: Physician Assistant; Admitting Provider Family Medicine; Emergency Provider Registered Nurse Emergency; PCP Nurse Practitioner Family; Visit Provider Family Medicine
DX: I82.612 Acute embolism and thrombosis of superficial veins of left upper extremity; F11.20 Opioid dependence, uncomplicated; L02.414 Cutaneous abscess of left upper limb; L03.114 Cellulitis of left upper limb; Z59.00 Homelessness unspecified; F17.210 Nicotine dependence, cigarettes, uncomplicated; F15.11 Other stimulant abuse, in remission
CPT/HCPCS: 00123; 36415; 76881; 80048; 80053; 84145; 85027; 87040; 96365; 96366; 96367; 99285; 80202; 83605; 83735; 85025; 85610; 85730; 86140; 93971; 99223; 99238; J0690; J0696; J3370; J3372

== ENCOUNTER 2024-08-28 13:06 | Outpatient (REF) | payer MEDICAID, SELFPAY ==
[2024-08-28 16:10] LABS: HCT 45.1 % (40.0-50.0); HGB 14.7 g/dL (13.5-17.5); MCH 28.8 pg (27.0-33.0); MCHC 32.6 % (32.0-36.0); MCV 88 fL (80-95); MPV 12.1 fL (8.0-11.0); Platelet Count 195 10^3/uL (130-400); RBC 5.11 10^6/uL (4.36-5.78); RDW 12.3 % (11.8-14.1); RDW-SD 40.1 fL; WBC 10.26 10^3/uL (4.4-10.8)
[2024-08-28 16:19] LABS: INR 0.9 (0.9-1.1); Prothrombin Time 9.5 sec (9.1-11.1)
[2024-08-28 18:11] LABS: ALT 98 U/L (16-63); AST 47 U/L (15-37); Alkaline Phosphatase 98 U/L (46-116); Anion Gap 11.5 mmol/L (3-11); BUN 13 mg/dL (7-18); Bilirubin, Total 0.4 mg/dL (0.2-1.0); CO2 26.5 mmol/L (21.0-32.0); CREATININE 0.9 mg/dL (0.70-1.30); Calcium 9.4 mg/dL (8.5-10.1); Chloride 102 mmol/L (98-107); Estimated GFR 114.22 (mL/min/1.73m2); Glucose 98 mg/dL (74-106); Potassium 4.9 mmol/L (3.5-5.1); Sodium 140 mmol/L (136-145); Total Protein 7.7 g/dL (6.4-8.2)
[2024-08-28 23:16] LABS: HIV-1/2 Ag & Ab Screen Negative (Negative)
[2024-08-29 09:11] LABS: HBs Antibody, Quant >1000.0 mIU/mL (See Note); Hepatitis B Surface Ab Positive (See Note)
[2024-08-29 09:17] LABS: Hepatitis B Surface Ag Negative (Negative)
[2024-08-29 09:49] LABS: Hep B Core Antibody Negative (Negative)
[2024-08-29 09:56] LABS: Hep A Total Ab w Rflx IgM Negative (Negative)
[2024-08-29 11:02] LABS: HCV RNA Detection Quantitative 447000 IU/mL (Undetected); HCV RNA Qualitative Detected (Undetected)
[2024-09-01 15:15] LABS: HCV Genotype 3 (Undetected)
[2024-09-02 10:25] LABS: ALT 90 U/L (7-55); ActiTest Grade A1-A2; ActiTest Interpretation minimal activity; ActiTest Score 0.46; Alpha-2-Macroglobulin 206 mg/dL (100 - 280); Apoliprotein A1 149 mg/dL (>=120); Bilirubin, Total 0.3 mg/dL (0.0 - 1.2); FibroTest Interpretation no fibrosis; FibroTest Score 0.13; FibroTest Stage F0; GGT 46 U/L (8 - 61); Haptoglobin 158 mg/dL (30 - 200)
== END 2024-08-28 13:07 | disposition home or self-care (01) ==
LOC: NCHCN 13:06
PROVIDERS: PCP Nurse Practitioner Family; Visit Provider Nurse Practitioner Family
DX: Z51.81 Encounter for therapeutic drug level monitoring (principal)
CPT/HCPCS: 80053; 80307; 81596; 85027; 86704; 86706; 86709; 87340; 87389; 87522; 85610; 87521